=== PATIENT | male | born 1945 | race Caucasian/White ===

== ENCOUNTER 2016-09-25 12:44 | Observation (INO) | payer OTHER ==
[~2016-09-25] VITALS: Ht 180.3 cm; Wt 125.0 kg
--- NOTE | 2016-09-25 14:05 | DIAGNOSTIC IMAGING REPORT ---
PROCEDURE: CT HEAD WITHOUT CONTRAST INDICATION: TRAUMA/INJURY TECHNIQUE: Axial CT images were acquired through the head. Coronal and sagittal reformations were created. COMPARISON: None. FINDINGS: Images limited by motion artifact. No intracranial hemorrhage or extraaxial fluid collections. Ventricles are normal in size, shape and position. There is no mass, mass effect or midline shift. The christopher-white matter differentiation is normal. There is no edema. The calvarium is intact. The paranasal sinuses and mastoid air cells are normally aerated. The extracranial soft tissues and orbits are normal. Facial bones CT: There is swelling over the soft tissues of the right orbit and forehead. Bony orbits, zygomatic arches, maxilla, mandible, pterygoid plates, and temporomandibular joints are all intact. IMPRESSION: 1. No CT evidence of acute intracranial process. 2. Superficial orbital and forehead swelling All CT scans at this facility use dose modulation, iterative reconstruction, and/or weight-based dosing when appropriate to reduce radiation dose to as low as reasonably achievable.
--- NOTE | 2016-09-25 14:09 | DIAGNOSTIC IMAGING REPORT ---
PROCEDURE: CT CERVICAL SPINE W/O CONTRAST INDICATION: TRAUMA/INJURY TECHNIQUE: Noncontrast axial images with sagittal and coronal reformations. COMPARISON: Cervical spine CT 06/01/2016 FINDINGS: The craniocervical junction is intact. The cervical vertebral bodies are normal in height without evidence of fracture. Partial bony ankylosis between the vertebral bodies and facet joints at the C2-3 level. Chronic-appearing grade 1 anterolisthesis, moderate to severe posterior disc height loss, endplate degeneration, and severe facet arthropathy at C3-4. There is bilateral foraminal narrowing. Moderately severe disc height loss at the C6-7 level also causing bilateral foraminal narrowing. No pathologic subluxation. The central canal is patent. No prevertebral or paravertebral soft-tissue swelling or mass. Mild carotid atherosclerosis. Patent airway and normal lung apices. IMPRESSION: 1. No acute fracture or pathologic subluxation. 2. Moderate to severe degenerative changes at C3-4 and C6-7 causing bilateral foraminal narrowing but no acute central canal stenosis.
--- NOTE | 2016-09-25 14:13 | DIAGNOSTIC IMAGING REPORT ---
PROCEDURE: CT SINUS/FACIAL BONES W/O CONT CLINICAL INDICATION: TRAUMA/INJURY TECHNIQUE: Noncontrast axial CT images through the sinuses. Coronal and sagittal reformations were created. COMPARISON: None. FINDINGS: The frontal sinuses are normally aerated. The outflow tracts are patent. Sphenoid sinuses and their outflow tracts are patent. The maxillary sinuses are normally aerated with mucosal thickening. The outflow tracts are patent. The nasal septum is midline without significant spurring. Nasal passages are patent with normal nasal turbinate morphology. No facial bone fractures. There is edema over the right orbit and forehead. IMPRESSION: 1. No facial bone fractures. Soft tissue edema. 2. Results were called to Dr. Mccann at 12:[address] scans at this facility use dose modulation, iterative reconstruction, and/or weight-based dosing when appropriate to reduce radiation dose to as low as reasonably achievable.
--- NOTE | 2016-09-25 14:23 | DIAGNOSTIC IMAGING REPORT ---
PROCEDURE: XR KNEE 4 VIEWS - RIGHT INDICATION: TRAUMA/INJURY TECHNIQUE: Four views. COMPARISON: None. FINDINGS: No fracture dislocation. There is osteoarthritis and narrowing of the medial joint space compartment. IMPRESSION: 1. No fracture or dislocation.
--- NOTE | 2016-09-25 14:31 | DIAGNOSTIC IMAGING REPORT ---
PROCEDURE: XR TOE - LEFT INDICATION: TRAUMA/INJURY TECHNIQUE: A P foot and two views of the left first toe. COMPARISON: None. FINDINGS: There is a chip fracture off the medial aspect of the base of the distal phalanx of the first toe. IMPRESSION: 1. Chip fracture off the base of the proximal phalanx of the great toe. 2. Results discussed with the Dr. Mccann at 02:20 p.m.
--- NOTE | 2016-09-25 16:07 | DIAGNOSTIC IMAGING REPORT ---
PROCEDURE: XR CHEST 1 VIEW INDICATION: CHEST PAIN TECHNIQUE: Portable AP view 03:45 p.m. COMPARISON: Chest 05/01/16 FINDINGS: The cardiomediastinal contour and central vasculature are normal. Mild right lung base atelectasis. The lungs are otherwise clear without focal consolidation, pleural effusion. The osseous structures demonstrate deformities of right fifth, sixth, and seventh rib fractures. No pneumothorax. IMPRESSION: 1. No evidence of acute cardiopulmonary disease. 2. Old right rib fractures.
--- NOTE | 2016-09-25 21:09 | DIAGNOSTIC IMAGING REPORT ---
PROCEDURE: NM PULMONARY PERFUSION W/VENT INDICATION: Left-sided chest pain, hypoxia, history of COPD TECHNIQUE: 36.7 mCi of technetium-99m DTPA was aerosolized and inhaled. 5.8 mCi technetium-99m MAA was injected intravenously. Ventilation and perfusion images of the lungs were obtained in eight orthogonal projections. COMPARISON: None. Chest x-ray Performed the same day. FINDINGS: Ventilation images: Clumping of radiotracer in the main bronchi. Multiple areas of ventilation defects throughout both lungs. Perfusion images: Mildly heterogeneous distribution of perfusion radiotracer throughout the lungs. There are multiple matched perfusion defects in each lung, smaller than the ventilation defects. There are no perfusion defects without accompanying ventilation defect. IMPRESSION: 1. Low probability of pulmonary embolus. 2. Perfusion and ventilation defects consistent with COPD. 3. Findings called to the emergency room.
--- NOTE | 2016-09-25 21:24 | ED ORDER SUMMARY ---
..... Patient: MARY ACOSTA OrderSheet [facility] VisitID: [id number] [place] [address] 70y, M Registration Date/Time: 09/25/2016 ORDER SHEET Weight: 132.4 kg (measured) Allergies: No Known Drug Allergy GENERAL ORDERS: EKG - ER Stat (13:09/25/2016 TCbeatapmnathan R.N. per protocol) (13:15 TChapman R.N.) CT Cervical Spine wo Cont Urgent (13:09/25/2016 Florecita Miller) (Ack 13:32 Shanti) (14:25 MWinterer R.N.) CT Head wo Cont Urgent (13:09/25/2016 Florecita Miller) (Ack 13:32 Shanti) (14:25 MWinterer R.N.) CT Sinus/Facial Bones wo Cont Urgent (13:09/25/2016 Florecita Miller) (Ack 13:32 Shanti) (14:25 MWinterer R.N.) Knee 4V Right Urgent (13:09/25/2016 Florecita Miller) (Ack 13:32 Shanti) (14:25 MWinterer R.N.) Toe Left Urgent (13:09/25/2016 Florecita Miller) (Ack 13:32 Shanti) (14:25 MWinterer R.N.) Cardiac Panel Stat (13:09/25/2016 Florecita Miller) (Ack 13:32 Shanti) (14:01 MWinterer R.N.) UA-Culture if indicated Urgent (13:09/25/2016 Florecita Miller) (Ack 13:32 Shanti) (14:52 Renu R.N.) BNP Urgent (13:09/25/2016 Florecita Miller) (Ack 13:32 Shanti) (14:01 MWinterer R.N.) D-Dimer Urgent (13:09/25/2016 Florecita Miller) (Ack 13:32 Shanti) (14:01 MWinterer R.N.) Amylase Urgent (13:22 09/25/2016 Florecita Miller) (Ack 13:32 Shanti) (14:01 MWinterer R.N.) Lipase Urgent (13:22 09/25/2016 Florecita Miller) (Ack 13:32 Shanti) (14:01 MWinterer R.N.) VQ Scan (Positive D dimer. Cr 2.1) Urgent (14:27 09/25/2016 Florecita Miller) (Ack 14:41 Shanti) (21:13 [facility]) Chest 1V Urgent (15:45 09/25/2016 Florecita Miller) (15:52 MWinterer R.N.) MEDICATION ORDERS: IV FLUIDS: IV NS : initial bolus none -, then 1000 mL/hr (NOW) (13:02 09/25/2016 TChapman R.N. per protocol) (13:05 TChapman R.N.) Zofran IV 4 mg (NOW) (13:22 09/25/2016 Florecita Miller) (Ack 13:53 JBoardley R.N.) (14:24 MWinterer R.N.) Magnesium Sulfate Drip IV : initial bolus 2 gm/50mL, then 1 gm/hr (HIGH ALERT MEDICATION, NOW, over 2 hours) (15:45 09/25/2016 Florecita Miller) (Ack 15:49 TChapman R.N.) (16:01 TChapman R.N.) IV NS : initial bolus none -, then 1000 mL/hr for X1 (NOW) (15:46 09/25/2016 Florecita Miller) (Ack 15:49 TChapman R.N.) (16:01 TChapman R.N.) Morphine IV 4 mg (HIGH ALERT MEDICATION, NOW) (17:38 09/25/2016 Florecita Miller) (Ack 17:43 TChapman R.N.) (17:48 TChapman R.N.) ORDER SHEET NOTES: [Electronically signed by Willie Mccann Dr. (21:31 09/25/2016)] [Electronically signed by Shantel Murillo R.N. (23:17 09/25/2016)] [Electronically locked/signed by Shantel Murillo R.N. (23:17 09/25/2016)]
--- NOTE | 2016-09-25 21:24 | ED CLINICAL REPORT ---
Clinical Report - Physicians/Mid Levels [place] [address] [address] [place] [address] 09/25/2016 12:44 Patient: MARY ACOSTA Time Seen: 12:46; upon arrival, initial patient contact. Arrived- By ambulance. Historian- patient. HISTORY OF PRESENT ILLNESS Location of injuries- head, face, right knee and left great toe. Chief Complaint: INJURY TO HEAD, INJURY TO FACE and INJURY TO NECK. The injury occurred yesterday. Fell off a chair and landed on a tile surface (Fell off commode after losing balance). Occurred at home. The patient complains of moderate pain. The patient sustained a moderate blow to the head, complains of moderate neck pain and was dazed. No loss of consciousness or seizure. REVIEW OF SYSTEMS No nausea, difficulty breathing, decreased vision, double vision or epistaxis. No calf pain, cough, difficulty breathing, palpitations or alteration in mental status. No dizziness or numbness. The patient has had chest pain and pain, pedal edema, abdominal pain and joint pain. He has had a headache and sustained a head injury. All systems otherwise negative, except as recorded above. PAST HISTORY PAST MEDICAL HX: Mild type II diabetes mellitus. Hypertension. Heart disease. Medications: Carvedilol Phosphate ER Oral. Lisinopril Oral. Allergies: No Known Drug Allergy. SOCIAL HISTORY Current every day heavy tobacco smoker. No alcohol use or drug use. ADDITIONAL NOTES The nursing notes have been reviewed with agreement regarding the chief complaint, PMH and patient medications and allergies. PHYSICAL EXAM Appearance: Patient on a backboard. C-collar in place. Alert. No acute distress. Eyes: Pupils equal, round and reactive to light. EOM intact. Right periorbital area: moderate erythema, tenderness and swelling and large ecchymosis of the lateral aspect and supraorbital area of the periorbital area. No deformity. ENT: No dental injury. Dry mucous membranes present. Neck: Painless ROM. Neck non-tender. CVS: Heart sounds normal. Rate normal. Rhythm normal. Respiratory: No respiratory distress. Breath sounds normal. Chest nontender. Abdomen: Soft and nontender. No organomegaly. Back: Mild soft-tissue tenderness in the right upper and left upper thoracic area. No vertebral point tenderness. Skin: Skin intact. Skin warm and dry. Extremities: Right knee: mild erythema, tenderness and swelling and medium sized ecchymosis. Left foot: mild tenderness, moderate swelling and medium sized ecchymosis of the first toe. Neuro: Oriented X 3. Mood/affect normal. Speech normal. No motor deficit. No sensory deficit. LABS, X-RAYS, AND EKG EKG: EKG time: (1257). Normal sinus rhythm. Rate: 91. First-degree atrioventricular block. Normal QRS complex. Normal axis. Prolonged QTc (479). Interpretation time: 1257. Chest X-ray: (1. No evidence of acute cardiopulmonary disease. 2. Old right rib fractures.). Views: AP. Technique: good. The X-rays were independently viewed by me, interpreted by the radiologist and discussed with the radiologist. Prior films were not available for comparison. Rt Knee X-ray: No fracture. Normal alignment. No bony lesion. Soft tissues normal. Views: AP, lateral and oblique. Technique: good. The X-rays were independently viewed by me and interpreted contemporaneously by me. Prior films were not available for comparison. Lt Toes X-ray: Left toe(s) fracture. Fracture involving the proximal phalanx of the first toe. No angulated or displaced fracture of the first toe. Views: AP, lateral and oblique. Technique: good. The X-rays were independently viewed by me and interpreted contemporaneously by me. Prior films were not available for comparison. CT Face: 1. No facial bone fractures. Soft tissue edema. Facial CT performed without contrast. Prior studies were not available for comparison. The study was independently viewed by me, interpreted by the radiologist and discussed with the radiologist. CT C-Spine: (1. No acute fracture or pathologic subluxation. 2. Moderate to severe degenerative changes at C3-4 and C6-7 causing bilateral foraminal narrowing but no acute central canal stenosis.). Prior studies were not available for comparison. The study was interpreted by the radiologist and discussed with the radiologist. CT Head: (1. No CT evidence of acute intracranial process. 2. Superficial orbital and forehead swelling). Head CT performed without contrast. Prior studies were not available for comparison. The study was interpreted by the radiologist and discussed with the radiologist. V/Q Scan: Low probability for pulmonary embolism. Evidence of COPD. (No evidence of PE). The study was interpreted by the radiologist and discussed with the radiologist. Study type: V/Q scan. Prior studies were not available for comparison. Interpretation time: 21:05. Laboratory Tests: UA-Culture if indicated: (ELENA: 09/25/2016 14:45) ( [facility] 09/25/2016 15:09) Final results Test Result Flag Units (Reference) URINE COLOR YELLOW URINE APPEARANCE CLEAR URINE GLUCOSE NEGATIVE (NEGATIVE) URINE BILIRUBIN NEGATIVE (NEGATIVE) URINE KETONE NEGATIVE (NEGATIVE) URINE SPECIFIC GRAVITY 1.010 (1.010-1.030) URINE PH 6.0 (5.0-8.0) URINE PROTEIN NEGATIVE (NEGATIVE) URINE UROBILINOGEN 0.2 EU/dL (0.2-1.0) URINE NITRITE NEGATIVE (NEGATIVE) URINE BLOOD NEGATIVE (NEGATIVE) URINE LEUK ESTERASE NEGATIVE (NEGATIVE) URINE RBC NONE SEEN rbc/hpf (0-1) URINE WBC RARE wbc/hpf (0-1) URINE EPITHELIAL CELLS 0-1 EPI/hpf (0-5) URINE BACTERIA NONE SEEN (NONE SEEN) URINE COMMENT CULT NOT INDICATED URINE CULTURES ARE SET-UP BASED ON THE FOLLOWING CRITERIA:POSITIVE NITRITEPOSITIVE LEUKOCYTE ESTERASEGREATER THAN 10 WHITE BLOOD CELLSMODERATE (2+) OR GREATER BACTERIA CBC w Diff: (ELENA: 09/25/2016 11:58) ( [facility] 09/25/2016 13:36) Final results Test Result Flag Units (Reference) WHITE BLOOD COUNT 7.8 K/uL (4.5-11.5) RED BLOOD COUNT 3.95 L M/uL (4.50-5.90) HEMOGLOBIN 12.3 L gm/dL (13.5-17.5) HEMATOCRIT 36.3 L % (41.0-53.0) MEAN CELL VOLUME 92 fL (80-100) MEAN CORPUSCULAR HGB 31 pg (26-34) MEAN CORPUSCULAR HGB CONC 34 g/dL (31-37) RED CELL DISTRIBUTION WIDTH 15.0 H % (11.6-14.8) PLATELET COUNT 232 K/uL (150-400) NEUTROPHIL % 78.8 H % (50-75) LYMPH % 12.1 L % (25-40) MONO % 8.4 % (3-14) EOSINOPHIL % 0.4 % (0-4) BASOPHIL % 0.3 % (0-2) [id number]: (ELENA: 09/25/2016 11:58) ( [facility] 09/25/2016 13:44) Final results Test Result Flag Units (Reference) D-DIMER QUANTITATIVE 1.55 H ug/mLFEU (0.27-0.52) The primary value of this quantitative assay relates toits negative predictive value (i.e. exclusion) of pulmonaryembolism/deep vein thrombosis/DIC.Elevated levels of d-dimer may also occur with:, age, cancer, inflammation, liver disease,post-op, infection, hematoma, coronary disease, peripheralarteriopathy, bleeding disorders and thrombolytic treatment.Results should be correlated with other clinical andradiological data.Testing Methodology: Latex Immunoassay BNP: (ELENA: 09/25/2016 11:58) ( [facility] 09/25/2016 14:01) Final results Test Result Flag Units (Reference) B-TYPE NATRIURETIC PEPTIDE 59.3 pg/ml (5-100) CHEM 13 PANEL: (ELENA: 09/25/2016 11:58) ( [facility] 09/25/2016 15:20) Final results Test Result Flag Units (Reference) GLUCOSE 182 H mg/dL (70-110) BUN 26 H mg/dL (7-18) CREATININE 2.1 H mg/dL (0.6-1.3) Estimated GFR 33.45 mL/min Estimated GFR- 40.54 mL/min Note: Persistent reduction over 3 months in eGFR<60 mL/min/1.73 m2 defines CKD. Patients with eGFR values>=60 mL/min/1.73 m2 may also have CKD if evidence ofpersistent proteinuria. Additional information may be foundat www.kidney.org. SODIUM 126 L mmol/L (136-145) POTASSIUM 3.3 L mmol/L (3.5-5.1) CHLORIDE 87 L mmol/L (98-107) CARBON DIOXIDE 26 mmol/L (21-32) CALCIUM 8.2 L mg/dL (8.5-10.1) TOTAL PROTEIN 6.9 g/dL (6.4-8.2) ALBUMIN 3.1 L g/dL (3.3-5.0) BILIRUBIN, TOTAL 0.5 mg/dL (0.0-1.0) ALKALINE PHOSPHATASE 114 U/L (46-116) AST (SGOT) 27 U/L (15-37) ALT (SGPT) 20 U/L (12-78) MAGNESIUM 1.1 L mg/dL (1.8-2.4) LIPASE 109 U/L (73-393) AMYLASE 40 U/L (25-115) CPK 273 H U/L (24-260) TROPONIN I <0.05 ng/mL (0.00-1.5) TROPONIN REFERENCE RANGE:<0.1 NEGATIVE0.1-1.5 INDETERMINANT>1.5 POSITIVE CK-MB 3.2 ng/mL (0.5-3.2) %CKMB 1.2 % (0.0-4.0) . PROGRESS AND PROCEDURES Discussed case with hospitalist, (call returned 17:20 Dr. Freeman. Will take pt, would like VQ scan results before taking upstairs.). Discussed case with hospitalist, (call returned 21:28 Dr. Nobles. Will accept pt and see in ED). Agreed upon treatment plan and decision to place in observation. Health care provider will see patient in ED. Disposition: Observation in Acute Care. Condition: good. CLINICAL IMPRESSION Profound idiopathic hypotension. Closed nondisplaced proximal phalanx fracture of the left 1st toe. Multiple contusions with soft tissue hematoma to the right periorbital area, right knee and left great toe.No left toenail injury. Hypoxia. (Electronically signed by Willie Mccann Dr. 09/25/2016 21:31)
--- NOTE | 2016-09-25 21:24 | ED ORDER SUMMARY ---
..... Patient: MARY ACOSTA OrderSheet [facility] VisitID: [id number] [place] [address] 70y, M Registration Date/Time: 09/25/2016 ORDER SHEET Weight: 132.4 kg (measured) Allergies: No Known Drug Allergy GENERAL ORDERS: EKG - ER Stat (13:09/25/2016 TCbeatapmnathan R.N. per protocol) (13:15 TChapman R.N.) CT Cervical Spine wo Cont Urgent (13:09/25/2016 Florecita Miller) (Ack 13:32 Shanti) (14:25 MWinterer R.N.) CT Head wo Cont Urgent (13:09/25/2016 Florecita Miller) (Ack 13:32 Shanti) (14:25 MWinterer R.N.) CT Sinus/Facial Bones wo Cont Urgent (13:09/25/2016 Florecita Miller) (Ack 13:32 Shanti) (14:25 MWinterer R.N.) Knee 4V Right Urgent (13:09/25/2016 Florecita Miller) (Ack 13:32 Shanti) (14:25 MWinterer R.N.) Toe Left Urgent (13:09/25/2016 Florecita Miller) (Ack 13:32 Shanti) (14:25 MWinterer R.N.) Cardiac Panel Stat (13:09/25/2016 Florecita Miller) (Ack 13:32 Shanti) (14:01 MWinterer R.N.) UA-Culture if indicated Urgent (13:09/25/2016 Florecita Miller) (Ack 13:32 Shanti) (14:52 Renu R.N.) BNP Urgent (13:09/25/2016 Florecita Miller) (Ack 13:32 Shanti) (14:01 MWinterer R.N.) D-Dimer Urgent (13:09/25/2016 Florecita Miller) (Ack 13:32 Shanti) (14:01 MWinterer R.N.) Amylase Urgent (13:22 09/25/2016 Florecita Miller) (Ack 13:32 Shanti) (14:01 MWinterer R.N.) Lipase Urgent (13:22 09/25/2016 Florecita Miller) (Ack 13:32 Shanti) (14:01 MWinterer R.N.) VQ Scan (Positive D dimer. Cr 2.1) Urgent (14:27 09/25/2016 Florecita Miller) (Ack 14:41 Shanti) (21:13 [facility]) Chest 1V Urgent (15:45 09/25/2016 Florecita Miller) (15:52 MWinterer R.N.) MEDICATION ORDERS: IV FLUIDS: IV NS : initial bolus none -, then 1000 mL/hr (NOW) (13:02 09/25/2016 TChapman R.N. per protocol) (13:05 TChapman R.N.) Zofran IV 4 mg (NOW) (13:22 09/25/2016 Florecita Miller) (Ack 13:53 JBoardley R.N.) (14:24 MWinterer R.N.) Magnesium Sulfate Drip IV : initial bolus 2 gm/50mL, then 1 gm/hr (HIGH ALERT MEDICATION, NOW, over 2 hours) (15:45 09/25/2016 Florecita Miller) (Ack 15:49 TChapman R.N.) (16:01 TChapman R.N.) IV NS : initial bolus none -, then 1000 mL/hr for X1 (NOW) (15:46 09/25/2016 Florecita Miller) (Ack 15:49 TChapman R.N.) (16:01 TChapman R.N.) Morphine IV 4 mg (HIGH ALERT MEDICATION, NOW) (17:38 09/25/2016 Florecita Miller) (Ack 17:43 TChapman R.N.) (17:48 TChapman R.N.) ORDER SHEET NOTES: [Electronically signed by Willie Mccann Dr. (21:31 09/25/2016)] [Electronically signed by Shantel Murillo R.N. (23:17 09/25/2016)] [Electronically locked/signed by Shantel Murillo R.N. (23:17 09/25/2016)]
--- NOTE | 2016-09-25 21:24 | ED NURSING NOTES ---
Clinical Report - Nurses [facility] [address] [place] [address] 09/25/2016 12:44 Patient: MARY ACOSTA TRIAGE Triage time 12:47. Acuity: LEVEL 3. --12:56 Jaimee Bal R.N. 12:46 09/25/16. BP: 85/47. HR: 91. RR: 20. O2 saturation: 91% on room air. Temp: 98.1 F. Pain level now: 02/22. --12:56 Jaimee Bal R.N. Chief Complaint: INJURY TO HEAD and FACE. late entry - 12:46 09/25/16. --19:09 Shantel Murillo R.N. Weight: 132.4 kg measured. Height/Length: 72 inches Per Patient. BMI: 39.6. --13:05 Jaimee Bal R.N. Medications Carvedilol Phosphate ER Oral. Lisinopril Oral. --12:51 Jaimee Bal R.N. Allergies No Known Drug Allergy. --12:51 Jaimee Bal R.N. History Arrived by EMS, and from home. Historian: patient. ( yesterday had syncope episode. today called because he is in pain and c/o chest discomfort to medic dispatched. C/o pain everywhere). The patient had loss of consciousness of uncertain duration. He has had a headache and neck pain. ( yesterday. not today). 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 PAST MEDICAL HX: Mild type II diabetes mellitus. Hypertension. Heart disease. SOCIAL HX: Heavy tobacco smoker (cigarette)- 1 pack per day. Alcohol use. No drug use. ABUSE ASSESSMENT: No report of abuse. NUTRITIONAL RISK ASSESSMENT: The nutritional risk assessment revealed no deficiencies. FALL RISK ASSESSMENT: Fall risk assessment completed. Risk factors identified include severe pain, postural hypotension and patient history of fall and impairment of mobility and hearing. Fall interventions initiated. Side rails up x1. Brakes on Bed in low position. Patient visible from nurses' station. Call light in reach of patient. Instructed not to get up without assistance. --12:56 Jaimee Bal R.N. Interventions ID and allergy band on patient. To room. --12:56 Jaimee Bal R.N. 12:40 09/25/2016 Site #1 started prior to arrival by EMS via IV in the left forearm with an 20g angiocath; one attempt. Saline lock flushed. --12:50 Jaimee Bal R.N. PHYSICAL ASSESSMENT GENERAL / NEURO / PSYCH: Pupillary exam: Left pupil: 2mm, round and reactive to light directly. He has had weakness. HEENT: Head: signs of head trauma present. Photophobia present. RESPIRATORY: Wheezes right lung; left lung. CVS: Capillary refill less than 2 seconds. GI / : Abdominal tenderness. EXTREMITIES: Limited ROM present. Lower extremity edema. Gait not tested due to pain. Sensation intact. No upper extremity edema. SKIN: Skin is cool. --13:01 Jaimee Bal R.N. NURSING PROGRESS NOTES Soft c-collar applied. Two patient identifiers checked. Call light placed in reach. Side rails up x 2. Bed placed in lowest position. Brakes of chair on. Patient ready for evaluation- chart flagged and ED physician notified. --13:02 Jaimee Bal R.N. 12:58 09/25/2016 Site #2 started via IV in the right wrist with an 20g angiocath, with aseptic technique and good blood return; one attempt. Blood drawn: rainbow set. Labeled in the presence of the patient and sent to the lab. Saline lock flushed. --13:03 Jaimee Bal R.N. 13:05 09/25/2016 Started bag #1 1000 mL IV Fluids IV NS (Saline); at 1000 mL/hr over 30 minute(s) via site #1 via dial-a-flow. Allergies verified and confirmed 5 rights. IV patency established. --13:05 Jaimee Bal R.N. EKG time: (1257 PM). EKG was performed by a tech and shown to the ED physician. --13:17 Jaimee Bal R.N. Patient transported to radiology by stretcher with tech. (13:34). --13:34 Jaimee Bal R.N. 14:05 09/25/2016 IV Fluids IV NS Discontinued: bag #1 infused. Total amount infused: 1000 mL. IV patency established. IV site checked: no pain, redness, or swelling. IV flushed thoroughly. --14:24 Gardenia De Leon R.N. 14:21 09/25/16. Patient returned from radiology by stretcher with tech. --14:21 Gardenia De Leon R.N. 14:21 09/25/16. BP: 91/33. HR: 78. RR: 14. O2 saturation: 100% on nasal cannula at 2 liters/minute. --14:21 Gardenia De Leon R.N. 14:24 09/25/2016 Zofran (Ondansetron HCl) IVP 4 mg given over 1 minute(s) via site #1. Allergies verified and confirmed 5 rights. IV patency established. IV site checked: no pain, redness, or swelling. IV flushed thoroughly pre- and post-medication administration. IVP given by RN. --14:24 Gardenia De Leon R.N. 14:25 09/25/2016 Started bag #2 1000 mL IV Fluids IV NS (Saline); at 1000 mL/hr over 1 hour(s) via site #1 via IV pump. Allergies verified and confirmed 5 rights. IV patency established. IV site checked: no pain, redness, or swelling. IV flushed thoroughly pre- and post-medication administration. --14:25 Gardenia De Leon R.N. 16 fr in/out catheterization. Reason for indwelling catheter: trauma and patient's decreased level of consciousness. During procedure hand hygiene observed and sterile equipment and aseptic technique used. He tolerated procedure well. Patient ID band checked for patient name and birthdate: patient confirmed. Catheterized urine collected with return of yellow-colored clear urine; sample sent to lab for culture. --14:48 Jaimee Bal R.N. 15:03 09/25/16. BP: 90/56. HR: 84. RR: 12. O2 saturation: 96% on nasal cannula at 2 liters/minute. --15:04 Gardenia De Leon R.N. 15:31 09/25/2016 IV Fluids IV NS Discontinued: bag #2 infused. Total amount infused: 1000 mL. IV patency established. IV site checked: no pain, redness, or swelling. IV flushed thoroughly. --15:41 Gardenia De Leon R.N. 16:00 09/25/2016 Started 2 gm of Magnesium Sulfate (Magnesium Sulfate in D5W) Drip IV in bag #1 50 mL; at 2 gm/hr over 2 hour(s) via site #1 --16:01 Jaimee Bal R.N. 16:01 09/25/2016 Started IV Fluids IV NS (Saline); at 1000 mL/hr over 1 hour(s) via site #2 via dial-a-flow. Allergies verified and confirmed 5 rights. IV patency established site checked: no pain, redness, or swelling flushed thoroughly pre- and post-medication administration. --16:01 Jaimee Bal R.N. 15:30 09/25/16. BP: 101/52. HR: 84. RR: 16. O2 saturation: 95% on nasal cannula. O2 started at 2 liters/minute. --16:59 Jaimee Bal R.N. 17:00 09/25/16. BP: 95/55. HR: 88. RR: 16. O2 saturation: 95% on room air. --17:01 Gardenia De Leon R.N. 17:26 09/25/2016 IV Fluids IV NS Discontinued: bag #3 completed. Total amount infused: 1000 mL. IV site checked: no pain, redness, or swelling IV flushed thoroughly. --17:36 Jaimee Bal R.N. 17:48 09/25/2016 Morphine IVP 4 mg given. via site #2. Allergies verified, confirmed 5 rights and sedative warning given to the patient. IV patency established. IV site checked: no pain, redness, or swelling. IV flushed thoroughly pre- and post-medication administration. --17:48 Jaimee Bal R.N. 17:49 09/25/16. BP: 90/53. HR: 70. RR: 20. O2 saturation: 92%. Pain level now: 01/22. --17:50 Jaimee Bal R.N. 17:51 09/25/16. ( patient feels like he is SOB, audible wheezes heard . Patient O2 sats in low 90's). --17:51 Jaimee Bal R.N. 18:40 09/25/16. BP: 105/48. HR: 87. RR: 18. O2 saturation: 94% on room air. --18:40 Gardenia De Leon R.N. late entry - 18:50. 8 fr hernández catheter placed. Reason for indwelling catheter: requires prolonged immobilization. During procedure hand hygiene observed and sterile equipment and aseptic technique used. Return of 400 mL yellow-colored clear urine; attached to bedside drainage bag positioned below the bladder and secured with tape. He tolerated procedure well. --19:07 Evelyn Olea R.N. 18:00 09/25/2016 Magnesium Sulfate Drip IV Discontinued: completed. Total amount infused: 50 mL. IV patency established. IV site checked: no pain, redness, or swelling. IV flushed thoroughly. --19:07 Shantel Murillo R.N. 18:13 09/25/16. ( patient lying on right side with pillow to back. previously tried pillow under knees. Patient very uncomfortable.). --18:13 Jaimee Bal R.N. 19:13 09/25/16. Patient transported. (to [facility] fro vq scan). --19:13 Shantel Murillo R.N. 20:40 09/25/16. Patient returned. (from [facility]). --20:49 Shantel Murillo R.N. 20:49 09/25/16. Cardiac rhythm: normal sinus rhythm. --20:49 Shantel Murillo R.N. 20:49 09/25/16. BP: 102/65. HR: 87. RR: 18. O2 saturation: 94%. Pain level now 5/10. --20:49 Shantel Murillo R.N. 20:49 09/25/16. GENERAL / NEURO / PSYCH: Alert. Oriented X 4. RESPIRATORY: No respiratory distress. Breath sounds normal. SKIN: Skin is warm and dry. --20:49 Shantel Murillo R.N. Cardiac rhythm: normal sinus rhythm. --22:43 Shantel Murillo R.N. 22:43 09/25/16. BP: 105/55. HR: 78. RR: 20. O2 saturation: 95%. --22:43 Shantel Murillo R.NAnna 22:44 09/25/16. ( O2 is on at 2 liters.). --22:44 Shantel Murillo R.N. Intake & Output 22:57 09/25/16. IV fluids: 3000. Urine: 900. --22:57 Shantel Murillo R.N. DISPOSITION / DISCHARGE 22:52 09/25/2016 Site #[address] upon admission; patent. --22:52 Shantel Murillo R.N. 22:52 09/25/2016 Site #[address] upon admission; patent. --22:52 Shantel Murillo R.NAnna 22:52 09/25/16. Cardiac rhythm: normal sinus rhythm. The goals identified in the patient's plan of care were met. Fall risk assessment completed. Risk factors identified include postural hypotension and patient age greater than 65 years and history of fall. Report was given to a nurse via a phone call. Report included patient's care, treatment, medications, reviewed medication reconcilliation, and condition (including any recent changes or anticipated changes). All questions were answered. (yomi Fernandez RN). --22:52 Shantel Murillo R.N. 23:17 09/25/16. Departure time: 23:Sep 25 2016. Condition at departure: improved and stable. Disposition: observation in Acute Care. Transported via stretcher by nurse. --23:17 Shantel Murillo R.N. 22:43 09/25/16. BP: 105/55. HR: 78. RR: 20. O2 saturation: 95%. 22:11 09/25/16. BP: 99/54. HR: 78. RR: 20. O2 saturation: 97%. Pain level now: 5/10. 20:49 09/25/16. BP: 102/65. HR: 87. RR: 18. O2 saturation: 94%. Pain level now 11/22. 18:40 09/25/16. BP: 105/48. HR: 87. RR: 18. O2 saturation: 94% on room air. 17:49 09/25/16. BP: 90/53. HR: 70. RR: 20. O2 saturation: 92%. Pain level now: 01/22. 17:00 09/25/16. BP: 95/55. HR: 88. RR: 16. O2 saturation: 95% on room air. 15:30 09/25/16. BP: 101/52. HR: 84. RR: 16. O2 saturation: 95% on nasal cannula. O2 started at 2 liters/minute. 15:03 09/25/16. BP: 90/56. HR: 84. RR: 12. O2 saturation: 96% on nasal cannula at 2 liters/minute. 14:21 09/25/16. BP: 91/33. HR: 78. RR: 14. O2 saturation: 100% on nasal cannula at 2 liters/minute. 12:46 09/25/16. BP: 85/47. HR: 91. RR: 20. O2 saturation: 91% on room air. Temp: 98.1 F. Pain level now: 02/22. --23:17 Shantel Murillo R.N. Locked/Released at 09/25/2016 23:17 by Shantel Murillo R.N.
--- NOTE | 2016-09-25 23:18 | ED DISCHARGE INSTRUCTIONS ---
Patient: MARY ACOSTA General Instructions [facility] VisitID: [id number] [address] [place] [address] 70y, M Registration Date/Time: 09/25/2016 Profound idiopathic hypotension. Closed nondisplaced proximal phalanx fracture of the left 1st toe. Multiple contusions with soft tissue hematoma to the right periorbital area, right knee and left great toe.No left toenail injury. Hypoxia. (Electronically signed by Willie Mccann Dr. 09/25/2016 21:31)
--- NOTE | 2016-09-25 23:18 | ED MAR SUMMARY ---
..... Medication Administration Record [facility] [address] [place] [address] Patient: MARY ACOSTA Visit ID: [id number] 70y, M Weight: 132.4 kg Height/Length: 72 in BMI: 39.6 ALLERGIES: No Known Drug Allergy Start 13:05 09/25/2016 Jaimee Bal R.N., Stop 14:05 09/25/2016 Gardenia De Leon R.N. Medication Administered: IV NS (SALINE), Dose: IV Fluids over 30 minute(s), Rate: 1000 mL/hr, Dispensed: 1000 mL bag, Site: #1 left forearm. Medication Ordered: IV NS : initial bolus none -, then 1000 mL/hr (NOW). Given 14:24 09/25/2016 Gardenia De Leon R.N. Medication Administered: ZOFRAN [IVP] (ONDANSETRON HCL), Dose: 4 mg IVP over 1 minute(s), Site: #1 left forearm. Medication Ordered: Zofran IV 4 mg (NOW). Start 14:25 09/25/2016 Gardenia De Leon R.N., Stop 15:31 09/25/2016 Gardenia De Leon R.N. Medication Administered: IV NS (SALINE), Dose: IV Fluids over 1 hour(s), Rate: 1000 mL/hr, Dispensed: 1000 mL bag, Site: #1 left forearm. Medication Ordered: IV NS : initial bolus none -, then 1000 mL/hr (NOW). Start 16:00 09/25/2016 Jaimee Bal R.N., Stop 18:00 09/25/2016 Shantel Murillo R.N. Medication Administered: MAGNESIUM SULFATE [IV DRIP] (MAGNESIUM SULFATE IN D5W), Dose: 2 gm Drip IV over 2 hour(s), Rate: 2 gm/hr, Dispensed: 50 mL bag, Site: #1 left forearm. Medication Ordered: Magnesium Sulfate Drip IV : initial bolus 2 gm/50mL, then 1 gm/hr (HIGH ALERT MEDICATION, NOW, over 2 hours). Start 16:01 09/25/2016 Jaimee Bal R.N., Stop 17:26 09/25/2016 Jaimee Bal R.N. Medication Administered: IV NS (SALINE), Dose: IV Fluids over 1 hour(s), Rate: 1000 mL/hr, Site: #2 right wrist. Medication Ordered: IV NS : initial bolus none -, then 1000 mL/hr for X1 (NOW). Given 17:48 09/25/2016 Jaimee Bal R.N. Medication Administered: MORPHINE [IVP], Dose: 4 mg IVP, Site: #2 right wrist. Medication Ordered: Morphine IV 4 mg (HIGH ALERT MEDICATION, NOW).
--- NOTE | 2016-09-25 23:18 | ED MED RECONCILIATION SUMMARY ---
Patient: MARY ACOSTA Medication Reconciliation Report [facility] VisitID: [id number] [address] [place] [address] 70y, M Registration Date/Time: 09/25/2016 Weight: 132.4 kg Height/Length: 72 in. BMI: 39.6 ALLERGIES: No Known Drug Allergy The patient's Home Medications are listed below: THE FOLLOWING MEDICATIONS NEED TO BE RECONCILED: Carvedilol Phosphate ER Oral Lisinopril Oral The source(s) of the original Home Medication information: Not obtained. The following Medications were given to the patient in the Emergency Department: IV NS IV Fluids bolus 0, then 1000 mL/hr, administered: 09/25/2016 1:05:00 PM Zofran [IVP] IVP 4 mg, administered: 09/25/2016 2:24:00 PM IV NS IV Fluids bolus 0, then 1000 mL/hr, administered: 09/25/2016 2:25:00 PM Magnesium Sulfate [IV Drip] Drip IV bolus 0, then 2 gm 2 gm/hr, administered: 09/25/2016 4:00:00 PM IV NS IV Fluids bolus 0, then 1000 mL/hr, administered: 09/25/2016 4:01:00 PM Morphine [IVP] IVP 4 mg, administered: 09/25/2016 5:48:00 PM The following Medications were prescribed to the patient: None.
--- NOTE | 2016-09-25 23:18 | ED DISCHARGE INSTRUCTIONS ---
Patient: MARY ACOSTA General Instructions [facility] VisitID: [id number] [address] [place] [address] 70y, M Registration Date/Time: 09/25/2016 Profound idiopathic hypotension. Closed nondisplaced proximal phalanx fracture of the left 1st toe. Multiple contusions with soft tissue hematoma to the right periorbital area, right knee and left great toe.No left toenail injury. Hypoxia. (Electronically signed by Willie Mccann Dr. 09/25/2016 21:31)
--- NOTE | 2016-09-25 23:18 | ED MED RECONCILIATION SUMMARY ---
Patient: MARY ACOSTA Medication Reconciliation Report [facility] VisitID: [id number] [address] [place] [address] 70y, M Registration Date/Time: 09/25/2016 Weight: 132.4 kg Height/Length: 72 in. BMI: 39.6 ALLERGIES: No Known Drug Allergy The patient's Home Medications are listed below: THE FOLLOWING MEDICATIONS NEED TO BE RECONCILED: Carvedilol Phosphate ER Oral Lisinopril Oral The source(s) of the original Home Medication information: Not obtained. The following Medications were given to the patient in the Emergency Department: IV NS IV Fluids bolus 0, then 1000 mL/hr, administered: 09/25/2016 1:05:00 PM Zofran [IVP] IVP 4 mg, administered: 09/25/2016 2:24:00 PM IV NS IV Fluids bolus 0, then 1000 mL/hr, administered: 09/25/2016 2:25:00 PM Magnesium Sulfate [IV Drip] Drip IV bolus 0, then 2 gm 2 gm/hr, administered: 09/25/2016 4:00:00 PM IV NS IV Fluids bolus 0, then 1000 mL/hr, administered: 09/25/2016 4:01:00 PM Morphine [IVP] IVP 4 mg, administered: 09/25/2016 5:48:00 PM The following Medications were prescribed to the patient: None.
--- NOTE | 2016-09-25 23:18 | ED MAR SUMMARY ---
..... Medication Administration Record [facility] [address] [place] [address] Patient: MARY ACOSTA Visit ID: [id number] 70y, M Weight: 132.4 kg Height/Length: 72 in BMI: 39.6 ALLERGIES: No Known Drug Allergy Start 13:05 09/25/2016 Jaimee Bal R.N., Stop 14:05 09/25/2016 Gardenia De Leon R.N. Medication Administered: IV NS (SALINE), Dose: IV Fluids over 30 minute(s), Rate: 1000 mL/hr, Dispensed: 1000 mL bag, Site: #1 left forearm. Medication Ordered: IV NS : initial bolus none -, then 1000 mL/hr (NOW). Given 14:24 09/25/2016 Gardenia De Leon R.N. Medication Administered: ZOFRAN [IVP] (ONDANSETRON HCL), Dose: 4 mg IVP over 1 minute(s), Site: #1 left forearm. Medication Ordered: Zofran IV 4 mg (NOW). Start 14:25 09/25/2016 Gardenia De Leon R.N., Stop 15:31 09/25/2016 Gardenia De Leon R.N. Medication Administered: IV NS (SALINE), Dose: IV Fluids over 1 hour(s), Rate: 1000 mL/hr, Dispensed: 1000 mL bag, Site: #1 left forearm. Medication Ordered: IV NS : initial bolus none -, then 1000 mL/hr (NOW). Start 16:00 09/25/2016 Jaimee Bal R.N., Stop 18:00 09/25/2016 Shantel Murillo R.N. Medication Administered: MAGNESIUM SULFATE [IV DRIP] (MAGNESIUM SULFATE IN D5W), Dose: 2 gm Drip IV over 2 hour(s), Rate: 2 gm/hr, Dispensed: 50 mL bag, Site: #1 left forearm. Medication Ordered: Magnesium Sulfate Drip IV : initial bolus 2 gm/50mL, then 1 gm/hr (HIGH ALERT MEDICATION, NOW, over 2 hours). Start 16:01 09/25/2016 Jaimee Bal R.N., Stop 17:26 09/25/2016 Jaimee Bal R.N. Medication Administered: IV NS (SALINE), Dose: IV Fluids over 1 hour(s), Rate: 1000 mL/hr, Site: #2 right wrist. Medication Ordered: IV NS : initial bolus none -, then 1000 mL/hr for X1 (NOW). Given 17:48 09/25/2016 Jaimee Bal R.N. Medication Administered: MORPHINE [IVP], Dose: 4 mg IVP, Site: #2 right wrist. Medication Ordered: Morphine IV 4 mg (HIGH ALERT MEDICATION, NOW).
[2016-09-25 23:31] VITALS: BP 122/57
[2016-09-26] VITALS (10 sets, daily range): BP systolic 90–128; BP diastolic 43–92
--- NOTE | 2016-09-26 00:52 | HISTORY AND PHYSICAL ---
ADMITTED: 09/25/2016 CHIEF COMPLAINT: 1. Fall at home 2. Bruising around right eye 3. Shortness of breath HISTORY OF PRESENT ILLNESS: The patient is a 70-year-old white male who became weak and lost his balance as he was getting up from a commode yesterday evening, 09/24/2016. He fell forward and struck his right facial area on the door frame, he thinks, and then fell to the floor on the anterior chest and knee area on the right side and stubbed the toe of his left foot into the floor. He was able to get up. He decided he was okay and waited until this morning to see how he was feeling. He felt quite short of breath and felt he should have this checked out. He called 9-1-1 and was transferred here to [facility]. He did show somewhat low oxygen saturations in the emergency department and had an elevated D-dimer of 1.55. He had a lung V/Q scan in place of pulmonary angiogram due to decreased kidney function. This showed no evidence of pulmonary embolus. Due to his weakness and somewhat unsteadiness he is admitted to observation. MEDICAL/SURGICAL HISTORY: Past medical history: Remarkable for hypertension, COPD, adult-onset diabetes, prostate cancer, osteoarthritis, obesity, and carotid artery disease. Past surgical history: Remarkable for a right hip joint replacement done a number of years ago. He also has had a right carotid endarterectomy. PRIMARY CARE PROVIDER: Ms. Zhu at the [facility] in [place]. MEDICATIONS: The patient is unsure of doses. Include: 1. Lisinopril. 2. Carvedilol. 3. Oral medicine for diabetes, which he takes twice daily. 4. He is on 2 medicines to help with urine flow. He is not sure what these are. 5. He thinks he may be on a medicine for cholesterol as well. 6. Aspirin 81 mg daily. ALLERGIES: 1. THE PATIENT HAS NO KNOWN ALLERGIES. SOCIAL HISTORY: Indicates the patient is about 1 year ago with his passing away of a fulminant infection that could not be controlled. He lives alone currently. He has no children. 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 He smokes 1 pack per day. He does occasionally drink some alcohol. He does not use other drugs. FAMILY HISTORY: Remarkable for father who around age 86 of twisted bowel problems. His mother around age 86 of heart problems and old age. He has 1 older sister age 86, who is living in [place]. He has 2 brothers, both of whom have , one at age 72 of causes the patient is not sure of and one around 58 of alcohol abuse. CODE STATUS: He and I discussed code status and he prefers NO CODE STATUS, but would like medications given. He would not like to be intubated or placed on life support machines. REVIEW OF SYSTEMS: HEENT: Remarkable for swelling around the right eye. He has had no problems with his vision or other difficulties. Respiratory: Remarkable for some chest congestion and wheezing. He does use inhalers. He has a long smoking history. Cardiovascular: Okay with no major problems other than hypertension. He does have some mild lower extremity edema. Gastrointestinal: Okay. He thinks he may have had a colonoscopy 7 or 8 years ago, which was okay. Genitourinary: Remarkable for prostate cancer, treated with radiation implants. He does occasionally have some difficulty passing his urine. He has had no blood in his urine. Musculoskeletal: Remarkable for arthritis pain in multiple joints. He has decreased mobility and he uses a walker. He is quite obese and this contributes to his difficulties. Skin: Okay. Neurologic: Okay with no focal numbness or weakness. PHYSICAL EXAMINATION: GENERAL: Reveals the patient to be a significantly obese white male who is in no acute distress. VITAL SIGNS: Temperature is 98.1. Blood pressure is in the 90-100 range systolic and 50-60 range diastolic. Pulse is in the 80s. Oxygen saturation has been from 91-97 on room air. HEENT: Remarkable for quite pronounced ecchymosis around the right oral area. There is some conjunctival injection on the right. Extraocular movements are normal with no double vision. Fundi are not well seen. Mouth and throat are okay. The patient does have some missing teeth. NECK: Shows no masses. Neck is short and thick. Carotid pulses are normal. No bruits are heard. There is no axillary adenopathy. CHEST: Reveals scattered inspiratory rhonchi and faint diffuse expiratory rhonchi and wheezes with I:E ratio of about 1:2. HEART: Reveals sounds to be distant. S1 and S2 are normal with no distinct murmur. ABDOMEN: Obese with no organomegaly or mass. Bowel tones are normal. RECTAL: Reveals prostate gland to be a small and firm and somewhat irregular feeling. There are no rectal masses. Stool guaiac is negative. GENITALIA: Shows normal circumcised male with testes descended bilaterally. There is no evidence of hernia. Silveira catheter is in place. EXTREMITIES: Show trace edema, left and right. Peripheral pulses are normal with +2 dorsalis pedis pulses left and right. There is some ecchymosis and slight erythema and abrasion over right knee. Range of motion is okay. There is some ecchymosis over the extensor aspect of the left big toe with some discomfort with flexion of the IP joint. NEUROLOGIC: Reveals the patient to be alert and oriented x2-07/17. His knows that the month is September and the day is Sunday and the year is 2016. He is thinking the date is the rather than the . Motor and sensory examinations are otherwise normal with no focal abnormalities. Cranial nerves are symmetric. SKIN: Okay other than the bruised areas already mentioned. LAB/IMAGING: Laboratory studies show urine to be normal with specific gravity 1.010. A catheterized specimen shows no cells and no evidence of infection. Hemoglobin is 12.3, hematocrit is 36.3, white blood cell count is 7800. Sodium is 126, potassium 3.3, chloride 87, CO2 26, glucose 182, creatinine 2.1, BUN 28, magnesium 1.1. Total bilirubin is 0.5, SGOT is 27, SGPT is 20, lipase is 109, amylase is 40. CPK is 273 with CPK-MB at 3.2 and CPK-MB percent at 1.2. Troponin I is less than 0.05. D-dimer is 1.55. BNP is 59.3. Imaging studies show chest x-ray with some scattered interstitial stranding in the lower lung wang with no significant cardiomegaly and no distinct infiltrate. There are old right neurapraxias from the fifth through eighth rib. Brain CT scan is normal. Facial bone CT scan shows no evidence of fracture. Neck CT scan: Shows some significant degenerative disk changes at C3-C4 and C6- C7, but no fracture. Right knee x-rays are normal. X-rays of the left foot: Show a small avulsion fracture of the distal phalanx of the left big toe at the medial border of the interphalangeal joint. IMPRESSION: 1. The patient is presenting with a right periorbital contusion. He does not seem to have suffered a concussion or other major neurologic damage. He also has a right knee contusion and a small chip fracture of the distal phalanx of the left big toe, which should heal on its own. 2. Other problems include renal insufficiency. This may be due to relative dehydration. 3. He also has hypomagnesemia and decreased sodium level. This may be related to some of his medications and poor oral intake over the last 24 hours. 4. He has longstanding problems with osteoarthritis. 5. Obesity. 6. He has a history of prostate cancer, which seems to be fairly well- controlled. 7. He also has adult-onset diabetes with degree of control not known. PLAN: The patient has had magnesium replaced in the emergency department. He will have this rechecked in the morning to see if he needs additional magnesium. He has been hydrated with 2 L of fluid and we will continue normal saline with 20 mEq of potassium at 75 mL an hour overnight. Blood tests will be checked again in the morning to reevaluate kidney function and electrolyte balance. Additionally, he will be placed on sliding scale insulin, will have Accu-Cheks done before meals and at bedtime. He has underlying chronic obstructive pulmonary disease and bronchospasm. He will start on DuoNeb for this. He will be continued on low-flow oxygen to keep oxygen saturation greater than or equal to 92%. Currently, he is somewhat on the hypotensive side. He will not be started back on his antihypertensive medications, though his blood pressure indicates the need for this. We will try to get an accurate medication list from his outpatient [facility] in [place] tomorrow morning. His code status will be CHEMICAL CODE ONLY, per his request. He may benefit from a physical therapy evaluation tomorrow to assess his ambulatory function.
[2016-09-26] MEDS ORDERED: EXTRA STRENGTH500 MG PO (09:40)
[2016-09-26] MEDS ORDERED: ALBUTEROL HFA60 DOSE IN (09:47)
[2016-09-26] MEDS ORDERED: COMBIVENT RESPIMAT IN (09:49)
[2016-09-26] MEDS ORDERED: ASPIRIN EC325 MG PO (09:50)
[2016-09-26] MEDS ORDERED: CARVEDILOL25 MG PO (09:51)
[2016-09-26] MEDS ORDERED: ATORVASTATIN CA40 MG PO (09:51)
[2016-09-26] MEDS ORDERED: NEURONTIN300 MG PO (09:52)
[2016-09-26] MEDS ORDERED: MAXZIDE-25 PO (09:53)
[2016-09-26] MEDS ORDERED: [UNRECOGNIZED DRUG - OTHER] PO (09:55)
[2016-09-26] MEDS ORDERED: VITAMIN D33000 UNIT PO (09:56)
[2016-09-26] MEDS ORDERED: TERAZOSIN HCL1 MG PO (09:56)
--- NOTE | 2016-09-26 18:29 | DIAGNOSTIC IMAGING REPORT ---
REFERRING PHYSICIAN/PROVIDER: Everett Freeman MD CONSULTING MANAGER [employer]PORATE MARKETING: Julien James MD PROCEDURE: M-mode 2D echocardiography with spectral and color flow Doppler INDICATION: syncope Procedure: A two-dimensional transthoracic echocardiogram with color flow Doppler was performed. The study quality was technically difficult. The patient was in normal sinus rhythm during the exam. Left Ventricle: The left ventricle is mildly dilated. There is normal left ventricular wall thickness. Left ventricular systolic function is probably normal. Regional wall motion abnormalities cannot be excluded due to limited visualization. There is a significant dyssynchronous contraction pattern, consistent with a conduction abnormality. Right Ventricle: The right ventricle is mild to moderately dilated. The right ventricular systolic function is normal. Atria: Both atria are normal in size. Mitral Valve: The mitral valve is not well visualized. The mitral valve is grossly normal. There is no mitral regurgitation noted. Aortic Valve: The aortic valve is not well visualized. There is no hemodynamically significant valvular aortic stenosis. There is no aortic regurgitation. Tricuspid Valve: The tricuspid valve is not well visualized, but is grossly normal. No tricuspid regurgitation. Pulmonary artery pressures cannot be estimated because of the lack of a measurable TR jet velocity. Pulmonic Valve: The pulmonic valve is not well visualized. Great Vessels: The aortic root is normal size. The dimensions of the ascending aorta are normal. The IVC is of normal diameter and collapses greater than 50% with a sniff. This suggests a low right atrial pressure of 3 mm Hg. Pericardium/ Pleura There is no pericardial effusion. IMPRESSION: The left ventricle is mildly dilated. Left ventricular systolic function is probably normal. Regional wall motion abnormalities cannot be excluded due to limited visualization. There is a significant dyssynchronous contraction pattern, consistent with a conduction abnormality. The right ventricle is mild to moderately dilated. The right ventricular systolic function is normal. Pulmonary artery pressures cannot be estimated because of the lack of a measurable TR jet velocity. Both atria are normal in size. No gross valvular abnormalities. The aortic root is normal size.
[2016-09-27 01:59] VITALS: BP 121/51
[2016-09-27 06:46] VITALS: BP 132/74
--- NOTE | 2016-09-27 11:24 | Provider's Discharge Care Plan ---
Problem, Goal, Plan Problem List 1. Hypotension Instructions: - secondary to medication lowering blood pressure significantly - will hold the HCTZ-triamterene - pt will need to follow up with his primary care provider as an outpatient - if blood pressure is persistenly elevated patient should have the drug re-introduced 2. Syncope Instructions: - secondary to hypotension, once medication was held patient had negative orthostatics and normal blood pressure - no obvious deficits on echocardiogram
--- NOTE | 2016-09-27 12:04 | Discharge Summary ---
Discharge Summary Report Admit Date 09/25/16 Discharge Date 09/27/16 Admission Diagnosis Hypotension and syncope Discharge Diagnosis hypotension due to antihypertensive overuse Brief History The patient is a 70-year-old white male who became weak and lost his balance as he was getting up from a commode yesterday evening, 09/24/2016. He fell forward and struck his right facial area on the door frame, he thinks, and then fell to the floor on the anterior chest and knee area on the right side and stubbed the toe of his left foot into the floor. He was able to get up. He decided he was okay and waited until this morning to see how he was feeling. He felt quite short of breath and felt he should have this checked out. He called 9-1-1 and was transferred here to [facility]. He did show somewhat low oxygen saturations in the emergency department and had an elevated D-dimer of 1.55. He had a lung V/Q scan in place of pulmonary angiogram due to decreased kidney function. This showed no evidence of pulmonary embolus. Due to his weakness and somewhat unsteadiness he is admitted to observation. Hospital Course Patient was admitted for the syncope and facial contusion. Patient did not have any underlying anatomical pathology secondary to the fall. Patient did have persistent hypotension, which was corrected by iv fluid infusion. Patient was restarted on his home medication one by one, and a steady state blood pressure was acheived. Currently patient has all his home medications restarted except for the hctz/triamterene. Which the patient was told to hold for the time being. Patient lastly had an echocardiogram which did not reveal an etiology for why the patient had the syncopal event. Patient will be discharged, he will follow up with his pmd within two weeks. He will resume all his home medications except for the hctz/triamterene. Patient will meet with his physician and at that point the primary care physician will restart the medication as needed. General Appearance Alert, Oriented X3, No acute distress Lungs Normal air movement Cardiovascular Normal S1, Normal S2, No murmurs, Gallops, Rubs Abdomen Soft, No tenderness, No hepatospenomegaly, No masses Skin No Breakdown, No Significant Lesions Neurological Normal speech, Normal tone, Sensation intact, Cranial nerves 3-12 NL Discharge Instructions/Meds - take medications as prescribed - avoid HCTZ/triamterene until you see your primary care provider
== END 2016-09-27 14:50 | disposition home or self-care (01) ==
LOC: ED SRH 12:44 → ACUTE2 SRH 21:25 → TRANS SRH 21:25 → ACUTE2 SRH 23:14
PROVIDERS: ADMIT Family Medicine
PROC: 0T9B70Z Drainage of Bladder with Drainage Device, Via Natural or Artificial Opening (ICD-10-PCS; principal; 2016-09-25)
DX: I95.2 Hypotension due to drugs (principal); T50.2X5A Adverse effect of carbonic-anhydrase inhibitors, benzothiadiazides and other diuretics, initial encounter; S00.11XA Contusion of right eyelid and periocular area, initial encounter; S80.01XA Contusion of right knee, initial encounter; W18.12XA Fall from or off toilet with subsequent striking against object, initial encounter; Y93.E8 Activity, other personal hygiene; Y92.002 Bathroom of unspecified non-institutional (private) residence as the place of occurrence of the external cause; Y99.8 Other external cause status; S92.425A Nondisplaced fracture of distal phalanx of left great toe, initial encounter for closed fracture; N28.9 Disorder of kidney and ureter, unspecified; E83.42 Hypomagnesemia; E87.1 Hypo-osmolality and hyponatremia; E86.0 Dehydration; E11.9 Type 2 diabetes mellitus without complications; Z79.84 Long term (current) use of oral hypoglycemic drugs; J44.9 Chronic obstructive pulmonary disease, unspecified; E66.9 Obesity, unspecified; Z68.39 Body mass index [BMI] 39.0-39.9, adult; Z72.0 Tobacco use

== ENCOUNTER 2016-11-24 04:24 | Inpatient (IN) | payer OTHER ==
[~2016-11-24] VITALS: Ht 180.3 cm; Wt 120.6 kg
[2016-11-24] VITALS (15 sets, daily range): BP systolic 89–136; BP diastolic 36–73
[~2016-11-24 04:24] MED LIST: ALBUTEROL HFA60 DOSE IN; ASPIRIN EC325 MG PO; ATORVASTATIN CA40 MG PO; CARVEDILOL25 MG PO; COMBIVENT RESPIMAT IN; EXTRA STRENGTH500 MG PO; MAXZIDE-25 PO; NEURONTIN300 MG PO; TERAZOSIN HCL1 MG PO; VITAMIN D33000 UNIT PO; [UNRECOGNIZED DRUG - OTHER] PO
--- NOTE | 2016-11-24 06:46 | ED ORDER SUMMARY ---
..... Patient: MARY ACOSTA OrderSheet [facility] VisitID: [id number] [address] [place] [address] 71y, M Registration Date/Time: 11/24/2016 ORDER SHEET Weight: 120 kg (measured) Allergies: No Known Drug Allergy GENERAL ORDERS: Chest 1V Urgent (04:50 11/24/2016 Vielka Miller) (Ack 5:09 LMuller) (5:49 LMuller) Calender Wind Up Helper (Continuous) (Respiratory Distress) (04:51 11/24/2016 Vielka Miller) (4:52 HSoule) Oxygen (titrate to sats > 90) (NC) (:51 11/24/2016 Vielka Miller) (4:52 HSoule) CT Abd/Pel w Cont (Yes) (N/A) Urgent (04:51 11/24/2016 Vielka Miller) (Ack 5:09 LMuller) (5:49 LMuller) CBC w Diff Urgent (04:52 11/24/2016 Vielka Miller) (5:10 LMuller) CMP Urgent (04:52 11/24/2016 Vielka Miller) (Ack 5:09 LMuller) (5:10 LMuller) UA-Culture if indicated Urgent (04:52 11/24/2016 Vielka Miller) (Ack 5:09 LMuller) (6:04 LMuller) PT with INR Urgent (04:52 11/24/2016 Vielka Miller) (Ack 5:09 LMuller) (5:10 LMuller) PTT Urgent (04:52 11/24/2016 Vielka Miller) (Ack 5:09 LMuller) (5:10 LMuller) Troponin-I Urgent (04:52 11/24/2016 Vielka Miller) (Ack 5:09 LMuller) (5:10 LMuller) D-Dimer Urgent (04:11/24/2016 Vielka Miller) (Ack 5:09 LMuller) (5:10 LMuller) BNP Urgent (04:11/24/2016 Vielka Miller) (Ack 5:09 LMuller) (5:09 LMuller) TSH Urgent (04:52 11/24/2016 Vielka Miller) (Ack 5:09 LMuller) (5:09 LMuller) Pulse oximeter (04:52 11/24/2016 Vielka Miller) (4:52 HSoule) Blood Culture (No) (N/A) Urgent (04:55 11/24/2016 Vielka Miller) (Ack 5:09 LMuller) (5:09 LMuller) Lactate, Serum Urgent (04:55 11/24/2016 Vielka Miller) (Ack 5:09 LMuller) (5:09 LMuller) Abdomen 1V Urgent (05:05 11/24/2016 Vielka Miller) (Ack 5:09 LMuller) (5:49 LMuller) ABG (G) Urgent (06:33 11/24/2016 Vielka Miller) (Ack 6:41 LMuller) (8:51 JRomanelli R.N.) PCT (Procalcitonin) Urgent (06:34 11/24/2016 Vielka Miller) (Ack 6:41 LMuller) (8:51 JRomanroz R.N.) - (cortisol) (06:35 11/24/2016 Vielka Miller) (Ack 6:41 LMuller) (8:51 JRomanelli R.N.) MEDICATION ORDERS: DuoNeb Neb Tx 1 unit dose (NOW) (04:51 11/24/2016 Vielka Miller) (4:53 HSoule) Potassium Chloride PO 60 meq (NOW) (05:43 11/24/2016 Vielka Miller) (Ack 5:43 HSoule) (5:50 HSoule) IV FLUIDS: IV NS : initial bolus 2L, then none - for X1 (NOW) (04:51 11/24/2016 Vielka Miller) (4:53 HSoule) Cefepime IV 2 gm/50mL (NOW) (05:41 11/24/2016 Vielka Miller) (Ack 5:43 HSoule) (6:04 HSoule) Levaquin IV 750 mg/150 mL (NOW) (05:42 11/24/2016 Vielka Miller) (Ack 5:43 HSoule) (5:49 HSoule) Fentanyl IV 50 mcg (HIGH ALERT MEDICATION, NOW) (06:06 11/24/2016 Vielka Miller) (6:09 HSoule) Solu-MEDROL IV 125 mg (NOW) (06:22 11/24/2016 Vielka Miller) (Ack 6:22 HSoule) (6:33 HSoule) Zofran IV 4 mg (NOW) (09:19 11/24/2016 Luis Covington verbal order read back to Vielka Miller) (9:20 Luis Covington) ORDER SHEET NOTES: [Electronically signed by Vineet Buck R.N. (11:59 11/24/2016)] [Electronically signed by Gilbert Escobar Dr. (21:23 11/24/2016)] [Electronically locked/signed by Vineet Buck R.N. (11:59 11/24/2016)]
--- NOTE | 2016-11-24 06:46 | ED CLINICAL REPORT ---
Clinical Report - Physicians/Mid Levels [facility] [address] [place] [address] 11/24/2016 4:25 Patient: MARY ACOSTA Time Seen: 0445. Arrived- By ambulance. Historian- patient and EMS personnel. HISTORY OF PRESENT ILLNESS Chief Complaint: ABDOMINAL PAIN. At its maximum, severity described as severe. When seen in the E.D., severity described as severe. Modifying factors- worsened by movement. Relieved by rest. It is described as sharp and cramping. No radiation. It is described as located in the lower abdomen. This started past 4 - 5 days and is still present and worsening. It was abrupt in onset and has been constant but is not gone now. No nausea, loss of appetite, vomiting or diarrhea. No additional abdominal pain. (also with SOB. states he smokes and "if I don't have COPD, I probably do now." states he does not feel is shortness of breath and pain are related. no hemoptysis, leg swelling, recent trauma, or surgeries. No hx of PE or DVT.). No recent travel. Similar symptoms previously: None. Recent medical care: Not recently seen/assessed. REVIEW OF SYSTEMS No constipation, black stools, hematemesis, bloody stools or fever. No chest pain. He has had a cough. All systems otherwise negative, except as recorded above. PAST HISTORY See nurses notes. Medications: ASA Oral. Albuterol Sulfate Inhalation. Lisinopril Oral. Carvedilol Phosphate ER Oral. Allergies: No Known Drug Allergy. SOCIAL HISTORY Smoker- current status unknown. No alcohol use or drug use. No recent travel. Is a local resident. ADDITIONAL NOTES The nursing notes have been reviewed. PHYSICAL EXAM Vital Signs: 11/24/2016 04:35 BP: 103/78. 11/24/2016 04:30 BP: 85/41. HR: 77. RR: 25. O2 saturation: 90%. Blood pressure normal. Oxygen saturation normal. Appearance: Alert. Oriented X3. Patient in mild distress. (non-toxic). Eyes: Pupils equal, round and reactive to light. Eyes normal inspection. ENT: Ears normal. Nose normal. Pharynx normal. Neck: Normal inspection. Neck supple. No meningeal signs. CVS: Normal heart rate and rhythm. Heart sounds normal. Pulses normal. Respiratory: No respiratory distress. Expiratory moderate bilateral wheezes diffusely. Mild bilateral rhonchi present in the bases. Mild rales present in the bases bilaterally. Breath sounds normal. Chest nontender. Abdomen: Soft. Bowel sounds normal. (reducible non-tender small umbilical hernia. lower abdominal tenderness on the left. no masses. no tednerness at mcburney's. negative rovsigns. negative kamran's. no pulsatile mass). Back: Normal inspection. Skin: Skin warm and dry. Normal skin color. No rash. Normal skin turgor. Extremities: Extremities exhibit normal ROM. No lower extremity edema. Neuro: Oriented X 3. No motor deficit. No sensory deficit. LABS, X-RAYS, AND EKG EKG: No acute ischemia. Normal sinus rhythm. Rate: 74. Normal P waves. Normal NATALIIA. Normal QRS complex. Normal axis. Normal ST and T waves, QT and QTc. Partial LBBB. Not a STEMI. The study has been interpreted contemporaneously. The study has been independently viewed by me. Artifact present. I do not agree with or confirm the computer reading of the EKG. Chest X-ray: Infiltrate in the right lower lobe and left lower lobe. Consistent with pneumonia. (bilateral pneuonia vs CHF). Views: AP (portable). The X-rays were independently viewed by me and interpreted contemporaneously by me. Abdominal CT: sigmoid diverticulosis. Study type: abdomen and pelvis. Abdominal CT performed with IV contrast. The study was independently viewed by me and interpreted by the radiologist. The study was discussed with the radiologist (via fax). Laboratory Tests: UA-Culture if indicated: (ELENA: 11/24/2016 06:00) ( MsgRcvd 11/24/2016 06:16) Final results Test Result Flag Units (Reference) URINE COLOR YELLOW URINE APPEARANCE CLEAR URINE GLUCOSE TRACE (NEGATIVE) URINE BILIRUBIN NEGATIVE (NEGATIVE) URINE KETONE TRACE (NEGATIVE) URINE SPECIFIC GRAVITY <= 1.005 L (1.010-1.030) URINE PH 6.0 (5.0-8.0) URINE PROTEIN 1+ (NEGATIVE) URINE UROBILINOGEN 0.2 EU/dL (0.2-1.0) URINE NITRITE NEGATIVE (NEGATIVE) URINE BLOOD 1+ (NEGATIVE) URINE LEUK ESTERASE NEGATIVE (NEGATIVE) URINE RBC RARE rbc/hpf (0-1) URINE WBC 0-1 wbc/hpf (0-1) URINE EPITHELIAL CELLS 0-1 EPI/hpf (0-5) URINE BACTERIA TRACE (<1+) (NONE SEEN) URINE COMMENT CULT NOT INDICATED RARE HYALINE CASTURINE CULTURES ARE SET-UP BASED ON THE FOLLOWING CRITERIA:POSITIVE NITRITEPOSITIVE LEUKOCYTE ESTERASEGREATER THAN 10 WHITE BLOOD CELLSMODERATE (2+) OR GREATER BACTERIA CBC w Diff: (ELENA: 11/24/2016 05:00) ( MsgRcvd 11/24/2016 05:27) Final results Test Result Flag Units (Reference) WHITE BLOOD COUNT 9.6 K/uL (4.5-11.5) RED BLOOD COUNT 3.58 L M/uL (4.50-5.90) HEMOGLOBIN 11.3 L gm/dL (13.5-17.5) HEMATOCRIT 33.8 L % (41.0-53.0) MEAN CELL VOLUME 95 fL (80-100) MEAN CORPUSCULAR HGB 32 pg (26-34) MEAN CORPUSCULAR HGB CONC 34 g/dL (31-37) RED CELL DISTRIBUTION WIDTH 15.4 H % (11.6-14.8) PLATELET COUNT 229 K/uL (150-400) NEUTROPHIL % 76.5 H % (50-75) LYMPH % 12.5 L % (25-40) MONO % 10.3 % (3-14) EOSINOPHIL % 0.5 % (0-4) BASOPHIL % 0.2 % (0-2) PT with INR: (ELENA: 11/24/2016 05:00) ( MsgRcvd 11/24/2016 05:29) Final results Test Result Flag Units (Reference) INR 1.0 (0.8-1.2) Low Intensity Therapy: INR 1.5-2.0 PT range 18.5-23.1Mod.Intensity Therapy: INR 2.0-3.0 PT range 23.1-31.5High Intensity Therapy: INR 2.5-3.5 PT range 27.4-35.5High Intensity Therapy 2: INR 3.0-4.0 PT range 31.5-39.3 APTT 29 SECONDS (24-34) D-DIMER QUANTITATIVE 1.26 H ug/mLFEU (0.27-0.52) The primary value of this quantitative assay relates toits negative predictive value (i.e. exclusion) of pulmonaryembolism/deep vein thrombosis/DIC.Elevated levels of d-dimer may also occur with:, age, cancer, inflammation, liver disease,post-op, infection, hematoma, coronary disease, peripheralarteriopathy, bleeding disorders and thrombolytic treatment.Results should be correlated with other clinical andradiological data.Testing Methodology: Latex Immunoassay BNP: (ELENA: 11/24/2016 05:00) ( [facility] 11/24/2016 05:45) Final results Test Result Flag Units (Reference) B-TYPE NATRIURETIC PEPTIDE 217 H pg/ml (5-100) CMP: (ELENA: 11/24/2016 05:00) ( [facility] 11/24/2016 05:43) Final results Test Result Flag Units (Reference) GLUCOSE 117 H mg/dL (70-110) BUN 34 H mg/dL (7-18) CREATININE 2.5 H mg/dL (0.6-1.3) Estimated GFR 27.27 mL/min Estimated GFR- 33.05 mL/min Note: Persistent reduction over 3 months in eGFR<60 mL/min/1.73 m2 defines CKD. Patients with eGFR values>=60 mL/min/1.73 m2 may also have CKD if evidence ofpersistent proteinuria. Additional information may be foundat www.[email or web address].org. SODIUM 126 L mmol/L (136-145) POTASSIUM 2.6 *L mmol/L (3.5-5.1) CRITICAL RESULTS CALLEDCalled to GREY PORRAS RN 11/24/16 0542Were 2 patient identifiers used? YWas the result read back? Y CHLORIDE 84 L mmol/L (98-107) CARBON DIOXIDE 28 mmol/L (21-32) CALCIUM 7.9 L mg/dL (8.5-10.1) TOTAL PROTEIN 6.8 g/dL (6.4-8.2) ALBUMIN 3.2 L g/dL (3.3-5.0) BILIRUBIN, TOTAL 0.9 mg/dL (0.0-1.0) ALKALINE PHOSPHATASE 101 U/L (46-116) AST (SGOT) 54 H U/L (15-37) ALT (SGPT) 42 U/L (12-78) MAGNESIUM 1.2 L mg/dL (1.8-2.4) TROPONIN I <0.05 ng/mL (0.00-1.5) TROPONIN REFERENCE RANGE:<0.1 NEGATIVE0.1-1.5 INDETERMINANT>1.5 POSITIVE THYROID STIMULATING HORMONE 1.175 uIU/mL (0.30-3.74) . PROGRESS AND PROCEDURES Course of Care: the patient is a pleasant 8-year-old male with complex past medical history presenting for evaluation of abdominal pain and shortness of breath. On EMSs initial evaluation, patient was noted to be hypertensive at 160s systolic. When patient is here in the emergency department he is noted to be mildly hypotensive. Because of the patient's abdominal pain and change in blood pressure, would be concern for abdominal aortic dissection. Patient was noted to be increasingly hypotensive while here in the emergency department. And several fluid boluses were ordered. 3 IV access sites were obtained. An patient was monitored closely. Patient is also noted to be wheezing on examination and albuterol treatment was provided. Chest x-rays obtained. Patient was also noted to be critical and a abdominal film was obtained to evaluate for any obvious signs of intra-abdominal pathology. Bedside ultrasound was also used to evaluate the patient's abdomen. Gallbladder was noted and found to be unremarkable. Unable to see patient's aorta. Bladder is noted to be unremarkable. No free fluid noted on patient's abdominal examination otherwise. Patient had improved with the fluid boluses and went from severely hypotensive to mildly hypotensive. Please see vital sign flowsheet for further details. Because of the patient's improved blood pressure, it was extremely important to determine the etiology of the patient's abdominal pain and hypotension. CT scan of the abdomen and pelvis was ordered with contrast. Patient was accompanied to the CT scanner personally. Patient was monitored and transferred to the CT table by me personally. Patient was monitored and had the scan obtained uneventfully. Scan was pending at that time. Patient's blood pressure had significantly improved with the fluid boluses. also had a discussion with the patient in regards to advance directives. Patient wished to be A no code. Patient does not want to be intubated or put on a ventilator. this conversation had occurred prior to patient becoming severely hypotensive. He was alert and oriented 3 when this had occurred. Patient also reports having filled out an advanced directive form or having is similar discussion on his last visit to the emergency department. Patient states that he has not changes mind and still wished to be a no code. Patient's laboratory studies had returned. Patient noted to be hypokalemia, hyponatremic, with likely COPD exacerbation. Because of the patient's electrolyte abnormalities and hypotension, would be concerned for adrenal insufficiency. Steroids were provided. Patient also required Silveira catheter for urinalysis because he was unable to produce A urine sample. We were able to successfully catheterize the patient and obtaining a urine sample. Appears to be colin in color and clear. The patient's laboratory was noted for the findings above. Lactic acid is noted to be normal. Because the patient's severe hypotension and electrolyte abnormalities, feel the patient needed to be admitted to the intensive care unit. Had spoken to the hospitalist who will accept the patient. In the buttocks or even started empirically for COPD exacerbation. hospitalist also recommended to obtain a cortisol level as well as a PCT. These laboratory studies have been added. Patient was admitted to intensive care unit. Prior to patient's departure from the emergency department his blood pressure had noted to be slightly improved however still slightly hypotensive. Patient's condition remains critical. Critical care performed (65 minutes). Time is exclusive of separately billable procedures. Time includes: direct patient care, patient reassessment, coordination of patient care, interpretation of data (laboratory data), review of patient's medical records, medical consultation and documentation of patient care. Disposition: Admitted to the Critical Care Unit. Condition: critical. CLINICAL IMPRESSION hypotension, severe hyponatremia hypokalemia COPD exacerbation lower abdominal pain. (Electronically signed by Gilbert Escobar Dr. 11/24/2016 21:23)
--- NOTE | 2016-11-24 06:46 | ED NURSING NOTES ---
Clinical Report - Nurses [facility] [address] [place] [address] 11/24/2016 4:25 Patient: MARY ACOSTA TRIAGE Triage time 04:Nov 24 2016. Acuity: LEVEL 2. Chief Complaint: (Abdominal pain, shortness of breath). WM COMA SCORE: Wm Coma Scale: 15- eyes open spontaneously (4); best verbal response- oriented x 4 (5); best motor response- obeys commands (6). --04:35 Rosalee Wilks 04:30 11/24/16. BP: 85/41 taken on the right arm. HR: 77. RR: 25. O2 saturation: 90% on room air. Additional comments: NC applied . --04:35 Rosalee Wilks 04:35 11/24/16. BP: 103/78 taken on the left arm. --04:36 Rosalee Wilks 04:36 11/24/16. Temp: 98.1 F (oral). --04:37 Rosalee Wilks SEPSIS SCREEN: Sepsis Screen: negative. Infection suspected/documented. --04:38 Rosalee Wilks. Weight: 120 kg measured. Height/Length: 71 inches Measured. BMI: 36.9. --04:36 Rosalee Wilks. Medications Carvedilol Phosphate ER Oral. --04:33 Rosalee Wilks Lisinopril Oral. --04:33 Rosalee Wilks Albuterol Sulfate Inhalation. --04:34 Rosalee Wilks ASA Oral. --04:34 Rosalee Wilks. Medication/allergy information source: EMS. --04:35 Rosalee Wilks. Allergies No Known Drug Allergy. --04:33 Rosalee Wilks. History Arrived by EMS. Historian: EMS and patient. Unaccompanied. This started just prior to arrival. ( EMS reports patient called for lower abdominal pain related to hernia. Patient complains of shortness of breath. EMS reports that the patient oxygen saturation was 81%. The patient reports numbness in his lower extremities. EMS reports the patient complained of a fall yesterday due to a syncopal episode. EMS reports they found the patient to be hyportensive on route and called a medic union to meet them.). --04:35 Rosalee Wilks The patient has had a cough. PAST MEDICAL HX: Immunizations: status is unknown. SOCIAL HX: Light tobacco smoker (cigarette)- less than 1/2 a pack per day. Regular alcohol use. No drug use. No infectious disease exposure. ABUSE ASSESSMENT: No report of abuse. FALL RISK ASSESSMENT: Fall risk assessment completed. No fall risk identified. NUTRITIONAL RISK ASSESSMENT: The nutritional risk assessment revealed no deficiencies. FUNCTIONAL ASSESSMENT: Functional assessment: no impairments noted. LEARNING NEEDS ASSESSMENT: The learning needs assessment revealed no barriers. --04:37 Rosalee Wilks [facility] ([facility]). --04:37 Rosalee Wilks Treatment SWATCH CHECKER: See EMS report. EMS treatment SWATCH CHECKER verbally communicated and report reviewed. See report. Oxygen administered by nasal cannula. Pulse oximeter applied. conveyor monitor applied. Pre-hospital 12-lead EKG. ( EMS report initial BP 168/palp report BP upon arrival to facility 80/50 EMS report medic was called as patient appeared to have respiratory distress). --04:43 Rosalee Wilks Treatment SWATCH CHECKER: Finger stick glucose performed (131). --04:58 Rosalee Wilks. PROBLEMS: Fractured Phalanx (Toe). Contusion. Hypoxia. Hypotension. Heart Disease. Fall. CVA - Cerebrovascular Accident. Hypertension. Diabetes Mellitus. Prostate cancer. Diabete. Copd. Hypertension. Hype. --04:34 Rosalee Wilks. ADDITIONAL SURGERIES: Neck Surgery. --04:34 Rosalee Wilks. Interventions ID band on patient. To treatment room. --04:35 Rosalee Wilks. PHYSICAL ASSESSMENT To room via stretcher. GENERAL / NEURO / PSYCH: Alert. Oriented X 4. Appears in distress. HEENT: Pupils equal, round and reactive to light. Mucous membranes are pink. RESPIRATORY: Moderate respiratory distress. The patient can speak a few words at a time. Decreased breath sounds in the bases bilaterally. Wheezing present. GI / : Abdomen soft and nontender and normal bowel sounds. EXTREMITIES: Bilateral 2+ pitting edema of the lower extremities involving both feet and both ankles. SKIN: Skin is dry. --04:39 Rosalee Wilks. NURSING PROGRESS NOTES 04:29 11/24/2016 Site #1 started prior to arrival by EMS via IV in the left wrist with an 20g angiocath; one attempt. Saline lock flushed with 10 mL saline. --04:39 Rosalee Wilks Patient ID band checked for patient name and birthdate: patient confirmed. Blood samples drawn from the left wrist peripheral IV site with butterfly by nurse ; labeled in presence of the patient and sent to lab: rainbow set. Additional blood sent to lab. Line flushed with 10 mL normal saline post blood draw. --04:40 Rosalee Wilks 04:41 11/24/16. Oxygen administered by nasal cannula at 2 liters. conveyor monitor, pulse oximeter and NIBP monitor placed on patient; monitor alarms on. Patient gowned. Head of bed elevated. Warming measures: blanket applied. Reassurance given to the patient. Two patient identifiers checked. Call light placed in reach. Side rails up x 1. Bed placed in lowest position. Brakes of bed on. Patient ready for evaluation- chart flagged and ED physician notified. ( RT at bedside). --04:41 Rosalee Wilks ( RT at beside administering breathing treatment. Patient states to provider, "if anything happens just let me go". Patient believes he created an advanced directive last time he was here in the hospital. He reports he has no family and he does not want life saving measures.). --04:42 Rosalee Wilks EKG time: (04:42 Nov 24 2016). EKG was performed by a tech and shown to the ED physician. --04:42 Rosalee Wilks 04:51 11/24/16. BP: 44/32. Additional comments: Provider aware, orders to administer 2 L NS at 1000 ml per hour . --04:52 Rosalee Wilks 04:43 11/24/2016 Duoneb (Ipratropium-Albuterol) Neb TX Nebulizer 1 unit dose given. Given by the respiratory therapist. Allergies verified and confirmed 5 rights. --04:53 Rosalee Wilks 04:52 11/24/2016 Site #2 started via IV in the right hand with an 20g angiocath, with aseptic technique and good blood return; one attempt. Saline lock flushed with 10 mL saline. --04:52 EfeSilvestreRosalee 04:53 11/24/2016 Started bag #1 1000 mL IV Fluids IV NS (Saline); at 1000 mL/hr over 1 hour(s) via site #1. Allergies verified and confirmed 5 rights. IV patency established. IV site checked: no pain, redness, or swelling. IV flushed thoroughly pre- and post-medication administration (On pressure bag per provider order). --04:53 Rosalee Wilks 04:53 11/24/16. BP: 51/36. HR: 73. RR: 18. O2 saturation: 95% on nasal cannula at 4 liters/minute. Pain level now: 02/22. --04:55 Rosalee Wilks 04:56 11/24/2016 Site #3 started via IV in the right antecubital space with an 18g angiocath; one attempt. Blood drawn: rainbow set and cultures x1. Labeled in the presence of the patient and sent to the lab. Saline lock flushed with 10 mL saline (Lactate drawn). --04:56 Rosalee Wilks Blood samples drawn from the peripheral IV site: rainbow set: blood culture (1st set). Initial blood discarded and additional blood sent to lab. Line flushed with 10 mL normal saline post blood draw. --04:58 Rosalee Wilks ( Provider at bedside to perform ultrasound). --04:59 Rosalee Wilks 05:02 11/24/16. BP: 61/29. HR: 70. RR: 18. O2 saturation: 98% on nasal cannula at 4 liters/minute. --05:02 Rosalee Wilks 04:50 11/24/2016 Started bag #2 1000 mL IV Fluids IV NS (Saline); at 1000 mL/hr over 1 hour(s) via site #2. Allergies verified and confirmed 5 rights. IV patency established. IV site checked: no pain, redness, or swelling. IV flushed thoroughly pre- and post-medication administration (On pressure bag per provider order). --05:05 Rosalee Wilks 05:07 11/24/16. BP: 58/21 taken on the left arm, manually. --05:09 Rosalee Wilks 05:09 11/24/16. BP: 58/30 taken on the right arm, manually. --05:09 EfeSilvestre larrynah ( Radiology at bedside). --05:09 Rosalee Wilks 05:14 11/24/16. BP: 68/46. HR: 73. RR: 20. O2 saturation: 96% on nasal cannula at 4 liters/minute. --05:17 EfeSilvestre larrynah Reassessment after oxygen and fluids administered. SKIN: Moderately pallid. --05:19 Silvestre Wilksnah 05:17 11/24/16. BP: 76/45. HR: 71. O2 saturation: 96%. --05:19 Rosalee Wilks 05:21 11/24/16. BP: 80/43. HR: 77. RR: 18. O2 saturation: 98% on nasal cannula at 4 liters/minute. --05:22 Rosalee Wilks Patient transported to CT by stretcher with O2, monitor, nurse and tech. (05:29 Nov 24 2016). ( Provider accompanying patient to CT). --05:29 Rosalee Wilks Patient returned from CT by stretcher with nurse and tech. (05:42 Nov 24 2016). --05:42 Rosalee Wilks 05:42 11/24/16. BP: 86/44. HR: 75. RR: 17. O2 saturation: 95% on nasal cannula at 4 liters/minute. --05:43 EfeSilvestre larrynah Critical value relayed to ED by lab. Critical value received by zhou. K: 2.6. Critical value read back. Verified lab result and patient ID. ED physician notifed of critical value. Orders were received. --05:44 Nadya Holguin 05:35 11/24/2016 IV Fluids IV NS Discontinued: bag #1 completed. Total amount infused: 1000 mL. IV patency established. IV site checked: no pain, redness, or swelling. IV flushed thoroughly. --05:50 Rosalee Wilks 05:45 11/24/2016 IV Fluids IV NS Discontinued: bag #2 completed. Total amount infused: 1000 mL. IV patency established. IV site checked: no pain, redness, or swelling. IV flushed thoroughly. --05:50 Rosalee Wilks 05:49 11/24/2016 Started 750 mg of Levaquin (Levofloxacin) IVPB in bag #1 150 mL; at 100 mL/hr over 1.5 hour(s) via site #3 via IV pump. Allergies verified and confirmed 5 rights. IV patency established. IV site checked: no pain, redness, or swelling. IV flushed thoroughly pre- and post-medication administration. --05:49 Rosalee Wilks 05:50 11/24/2016 Potassium Chloride (Potassium Chloride ER) PO Tablets 60 meq given. Allergies verified and confirmed 5 rights. --05:50 Rosalee Wilks 05:50 11/24/16. BP: 89/41. HR: 72. RR: 18. O2 saturation: 94% on nasal cannula at 4 liters/minute. Pain level now: 8/10. --05:50 Rosalee Wilks 05:59 11/24/2016 Started 2 gm of Cefepime IVPB in bag #1 50 mL; at 140 mL/hr over 10 minute(s) via site #1 via IV pump. Allergies verified and confirmed 5 rights. IV patency established. IV site checked: no pain, redness, or swelling. IV flushed thoroughly pre- and post-medication administration. --06:04 Rosalee Wilks 06:04 11/24/16. BP: 98/44. HR: 72. RR: 17. O2 saturation: 97% on nasal cannula at 4 liters/minute. --06:04 Rosalee Wilks Silveira catheter. Reason for indwelling catheter: critical need to monitor intake and output. During procedure hand hygiene observed and sterile equipment and aseptic technique used. Return of 200 mL colin-colored clear urine; secured with strap. He tolerated procedure well. --06:05 Rosalee Wilks Patient ID band checked for patient name and birthdate: patient confirmed. Instructions provided to collect clean catch urine and patient verbalized understanding. Catheterized urine collected with return of colin-colored clear urine; odor is normal; sample sent to lab for urinalysis and culture. Specimen labeled in the presence of the patient. --06:05 Rosalee Wilks 06:09 11/24/2016 Fentanyl IVP 50 mcg given over 1 minute(s) via site #2. Allergies verified, confirmed 5 rights and sedative warning given to the patient. IV patency established. IV site checked: no pain, redness, or swelling. IV flushed thoroughly pre- and post-medication administration. IVP given by RN. --06:09 Rosalee Wilks 06:09 11/24/16. BP: 72/37. HR: 71. RR: 18. O2 saturation: 97% on nasal cannula at 4 liters/minute. Pain level now: 610. Additional comments: Provider notified . --06:18 Rosalee Wilks Reassessment after fluids administered and medication administered. Overall patient status- he states feels better. --06:18 Rosalee Wilks ( Patient states, " [facility] I pass [facility]".). --06:22 Rosalee Wilks 06:22 11/24/16. BP: 70/43. HR: 70. RR: 20. O2 saturation: 95% on nasal cannula at 4 liters/minute. --06:22 Rosalee Wilks 06:31 11/24/16. BP: 70/29. HR: 73. RR: 18. O2 saturation: 94% on nasal cannula at 4 liters/minute. Pain level now: 6/10. --06:32 Rosalee Wilks ( Patient skin cleaned and barrier cream applied. Patient has areas of redness on scrotum and buttock. Patient assisted to his side per his request, pillows used to create a comfortable position. Patient making jokes and in good spirits despite discomfort.). --06:32 Rosalee Wilks 06:40 11/24/16. BP: 70/29. HR: 73. RR: 20. O2 saturation: 95% on nasal cannula at 4 liters/minute. --06:41 Rosalee Wilks Reassurance given to the patient. ( Patient asked if he would like any family notified, he reports its only his sister that is living and he does not want to call her at this time. Discussed with patient to clarify his wished if he were to need life saving measures. Patient states again he does not want CPR or intubation. He reports he would like medications, fluids, monitoring and to be kept comfortable. He reiterates to nurse that he would [facility]. Provider aware of patient wishes.). --06:47 EfeSilvestre larrynah 06:47 11/24/16. BP: 86/35. HR: 73. RR: 20. O2 saturation: 94% on nasal cannula at 4 liters/minute. --06:47 Rosalee Wilks ( RT at bedside to perform ABG). --06:47 Efe Rosalee 07:05 11/24/16. BP: 95/47. HR: 71. RR: 20. O2 saturation: 95% on nasal cannula at 4 liters/minute. Pain level now: 4. --07:05 Vineet Buck RAnnaNAnna 06:20 11/24/2016 Cefepime IVPB Discontinued: bag #1 infused. Total amount infused: 50 mL. IV patency established. IV site checked: no pain, redness, or swelling. IV flushed thoroughly. (Cefeprime IVPB). --07:24 Vineet Buck R.NAnna 06:28 11/24/2016 SOLU-MEDROL (MethylPREDNISolone Sodium Succ) IVP 125 mg given over 2 minute(s) via site #2. Allergies verified and confirmed 5 rights. IV patency established. IV site checked: no pain, redness, or swelling. IV flushed thoroughly pre- and post-medication administration. IVP given by RN. --06:33 Rosalee Wilks 07:21 11/24/2016 Levaquin IVPB Discontinued: bag #1 completed. Total amount infused: 150 mL. IV patency established. IV site checked: no pain, redness, or swelling. IV flushed thoroughly. (Levaquin IVPB). --07:21 Vineet Buck R.NAnna 07:30 11/24/16. BP: 96/56. HR: 76 (regular). RR: 20. O2 saturation: 96% on nasal cannula at 4 liters/minute. Pain level now: 0/10. --08:37 Vineet Buck RAnnaNAnna 09:00 11/24/2016 Zofran (Ondansetron HCl) IVP 4 mg given over 2 minute(s) via site #3. Allergies verified and confirmed 5 rights. IV patency established. IV site checked: no pain, redness, or swelling. IV flushed thoroughly pre- and post-medication administration. IVP given by RN. --09:20 Vineet Buck R.N. 09:05 11/24/2016 Site #[address] upon admission; patent, no pain and no signs of infection or infiltration. Good blood return present. Flushed with 10 mL saline; flushes easily. --11:57 Vineet Buck R.N. 09:05 11/24/2016 Site #[address] upon admission; patent, no pain and no signs of infection or infiltration. Good blood return present. Flushed with 10 mL saline; flushes easily. --11:57 Vineet Buck R.N. 09:05 11/24/2016 Site #[address] upon admission; patent. Good blood return present. Flushed with 10 mL saline; flushes easily. --11:58 Vineet Buck R.N. DISPOSITION / DISCHARGE 08:38 11/24/16. BP: 106/76. HR: 78 (regular). RR: 22. O2 saturation: 95% on nasal cannula at 4 liters/minute. Temp: 98 F (oral). Pain level now: 2/10. Additional comments: 1st degree AV block. Slight c/o abdominal discomfort and nausea. --08:41 Vineet Buck R.N. Departure time: 904. --09:19 Vineet Buck R.N. 09:05. Admitted to the Critical Care Unit. Transported via stretcher by tech and nurse with monitor, IV and O2. Report was given. (MARY BETH Velasquez). Patient's personal items; items were placed in belongings bag and transported with the patient. --11:43 Vineet Buck R.N. Locked/Released at 11/24/2016 11:59 by Vineet Bukc R.N.
--- NOTE | 2016-11-24 06:46 | ED ORDER SUMMARY ---
..... Patient: MARY ACOSTA OrderSheet [facility] VisitID: [id number] [address] [place] [address] 71y, M Registration Date/Time: 11/24/2016 ORDER SHEET Weight: 120 kg (measured) Allergies: No Known Drug Allergy GENERAL ORDERS: Chest 1V Urgent (04:50 11/24/2016 Vielka Miller) (Ack 5:09 LMuller) (5:49 LMuller) [employer] (Continuous) (Respiratory Distress) (04:51 11/24/2016 Vielka Miller) (4:52 HSoule) Oxygen (titrate to sats > 90) (NC) (:51 11/24/2016 Vielka Miller) (4:52 HSoule) CT Abd/Pel w Cont (Yes) (N/A) Urgent (04:51 11/24/2016 Vielka Miller) (Ack 5:09 LMuller) (5:49 LMuller) CBC w Diff Urgent (04:52 11/24/2016 Vielka Miller) (5:10 LMuller) CMP Urgent (04:52 11/24/2016 Vielka Miller) (Ack 5:09 LMuller) (5:10 LMuller) UA-Culture if indicated Urgent (04:52 11/24/2016 Vielka Miller) (Ack 5:09 LMuller) (6:04 LMuller) PT with INR Urgent (04:52 11/24/2016 Vielka Miller) (Ack 5:09 LMuller) (5:10 LMuller) PTT Urgent (04:52 11/24/2016 Vielka Miller) (Ack 5:09 LMuller) (5:10 LMuller) Troponin-I Urgent (04:52 11/24/2016 Vielka Miller) (Ack 5:09 LMuller) (5:10 LMuller) D-Dimer Urgent (04:11/24/2016 Vielka Miller) (Ack 5:09 LMuller) (5:10 LMuller) BNP Urgent (04:11/24/2016 Vielka Miller) (Ack 5:09 LMuller) (5:09 LMuller) TSH Urgent (04:52 11/24/2016 Vielka Miller) (Ack 5:09 LMuller) (5:09 LMuller) Pulse oximeter (04:52 11/24/2016 Vielka Miller) (4:52 HSoule) Blood Culture (No) (N/A) Urgent (04:55 11/24/2016 Vielka Miller) (Ack 5:09 LMuller) (5:09 LMuller) Lactate, Serum Urgent (04:55 11/24/2016 Vielka Miller) (Ack 5:09 LMuller) (5:09 LMuller) Abdomen 1V Urgent (05:05 11/24/2016 Vielka Miller) (Ack 5:09 LMuller) (5:49 LMuller) ABG (G) Urgent (06:33 11/24/2016 Vielka Miller) (Ack 6:41 LMuller) (8:51 JRomanelli R.N.) PCT (Procalcitonin) Urgent (06:34 11/24/2016 Vielka Miller) (Ack 6:41 LMuller) (8:51 JRomanroz R.N.) - (cortisol) (06:35 11/24/2016 Vielka Miller) (Ack 6:41 LMuller) (8:51 JRomanelli R.N.) MEDICATION ORDERS: DuoNeb Neb Tx 1 unit dose (NOW) (04:51 11/24/2016 Vielka Miller) (4:53 HSoule) Potassium Chloride PO 60 meq (NOW) (05:43 11/24/2016 Vielka Miller) (Ack 5:43 HSoule) (5:50 HSoule) IV FLUIDS: IV NS : initial bolus 2L, then none - for X1 (NOW) (04:51 11/24/2016 Vielka Miller) (4:53 HSoule) Cefepime IV 2 gm/50mL (NOW) (05:41 11/24/2016 Vielka Miller) (Ack 5:43 HSoule) (6:04 HSoule) Levaquin IV 750 mg/150 mL (NOW) (05:42 11/24/2016 Vielka Miller) (Ack 5:43 HSoule) (5:49 HSoule) Fentanyl IV 50 mcg (HIGH ALERT MEDICATION, NOW) (06:06 11/24/2016 Vielka Miller) (6:09 HSoule) Solu-MEDROL IV 125 mg (NOW) (06:22 11/24/2016 Vielka Miller) (Ack 6:22 HSoule) (6:33 HSoule) Zofran IV 4 mg (NOW) (09:19 11/24/2016 Luis Covington verbal order read back to Vielka Miller) (9:20 Luis Covington) ORDER SHEET NOTES: [Electronically signed by Vineet Buck R.N. (11:59 11/24/2016)] [Electronically signed by Gilbert Escobar Dr. (21:23 11/24/2016)] [Electronically locked/signed by Vineet Buck R.N. (11:59 11/24/2016)]
--- NOTE | 2016-11-24 07:15 | DIAGNOSTIC IMAGING REPORT ---
PROCEDURE: XR CHEST 1 VIEW INDICATION: SOB TECHNIQUE: Single view chest. 05:09 hours COMPARISON: 09/25/2016 FINDINGS: The cardiopulmonary contour and central vasculature are stable, within normal limits. Pulmonary arteries mildly prominent. The lungs are mildly hyperinflated and hyperlucent in the upper lobes. Chronic bilateral lower lobe stranding but otherwise clear without focal consolidation, pleural effusion or pneumothorax. The osseous structures and demonstrate healed right lateral rib fractures. IMPRESSION: 1. No acute process. 2. Findings of COPD. 3. Chronic bibasilar atelectasis.
--- NOTE | 2016-11-24 07:19 | DIAGNOSTIC IMAGING REPORT ---
PROCEDURE: XR ABDOMEN 1 VIEW INDICATION: ABDOMINAL PAIN TECHNIQUE: Single view portable supine abdomen. COMPARISON: None. FINDINGS: Motion artifact on the film. No significant free intraperitoneal air on this single supine view. Paucity of small bowel gas. Normal amount of bowel gas in the colon. No unusual calcification. Severe degenerative changes in the left femoral acetabular joint and moderate degenerative changes in the lower lumbar spine. Multiple prostate seeds are present. Right hip arthroplasty. IMPRESSION: 1. Nonspecific, nonobstructive bowel gas pattern. 2. Severe left hip degeneration.
--- NOTE | 2016-11-24 07:39 | Progress Note ---
Subjective General Admission History and Physical Examination Patient Name: Torsten Dangelo Admission Date: November 24, 2016 Primary Care Provider: [facility] Attending Physician: Ridge Nunes MD Admitting Physician: Ridge Nunes M.D. Code Status: NO CODE Room: 303 Status: Inpatient, CCU SUBJECTIVE Historian: Patient Reliability: Poor Chief Complaint: Abdominal pain History of Present Illness: The patient is a 71-year-old white male with a significant past medical history of COPD, obesity, hypertension, diabetes mellitus, prostate cancer, osteoarthritis, carotid artery disease, who presented to [facility] emergency department on the day of admission secondary to complaints of abdominal pain. [facility] ER evaluation was consistent with diffuse abdominal pain of unclear etiology , hypertension, exacerbation of COPD. Secondary to the above, the patient was admitted by Ridge Nunes M.D. for further evaluation and treatment. A history of present illness began shortly before presentation when the patient developed epigastric abdominal discomfort. This was rather severe in degree. He denied recent history of hematemesis melena or hematochezia. He knew no aggravating or relieving factors. This was associated with shortness of breath. Secondary to the above the patient presented to [facility] emergency department for further evaluation and treatment. [facility] ER evaluation was consistent with hypotension of unclear etiology, abdominal discomfort with normal CT scan and unclear etiology. Secondary to the above the patient was admitted for further evaluation and treatment. PAST MEDICAL HISTORY Illnesses: 1. COPD 2. Hypertension 3. Diabetes mellitus 4. Prostate CA 5. Osteoarthritis 6. Obesity 7. Carotid artery disease Allergies: 1. No Known Drug Allergies Medications: 1. Duoneb 1 via neb q 6hours 2. Gabapentin 300mg po bid 3. Aspirin 35mg po daily 4. Coreg 25 mg po bid 5. Lipitor 40mg po dialy 6. Terazosin 5mg po daily 7. Vit D 2000 units po daily Surgery: 1. (R) EDGARDO 2. (R) CEA Injuries: 1. No significant Hospitalizations: 1. See above surgery and medical illnesses FAMILY HISTORY Parents: 1. Father, , 86, Bowel obstruction 2. Mother, , 86, "old age" Siblings: 1. Hx of alcohol abuse, Other significant family history: None SOCIAL HISTORY 1. Marital Status: 2. Mandaen: None 3. 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 Occupational health exposures: No significant HABITS 1. Tobacco: 1ppd 2. Drugs: None 3. Alcohol: 2-3 ounces per day HEALTH SUPERVISION Item/Test 1. not reviewed IMMUNIZATIONS: 1. Pneumococcal: Unknown 2. Influenza: Unknown 3. Tetanus: Unknown ADVANCED DIRECTIVES: 1. DNR/DNI-No Code REVIEW OF SYSTEMS Remarkable for those things stated in the history of present illness and past medical history. Seventeen point review of system completed with the following notable findings: General: Fatigue, weakness Eyes: Decreased visual acuity requiring corrective lenses Respiratory: Shortness of breath with exertion, wheezing Cardiovascular: Shortness of breath with exertion Gastrointestinal: Abdominal pain Genitourinary: Urinary hesitancy Physical Exam Vital Signs / I&Os Blood pressure: 96/52 mmHg Heart rate: 73/minute Respiratory rate: 18/minute Temperature: 98.1 Fahrenheit orally O2 saturation: 90% room air General Appearance Alert, Oriented X3, Cooperative, Mild distress HEENT Atraumatic, PERRLA, EOMI, Moist mucous membranes Lungs Decreased air movement bilaterally. Scattered rhonchi. No rales. Neck Supple, No JVD Cardiovascular Regular rate and rhythm, Normal S1 and S2, No murmurs, gallops, rubs Abdomen Normal bowel sounds, Soft, mild diffuse tenderness most significant epigastric region. No rebound Extremities No cyanosis, No clubbing Neurological Cranial nerves intact, Strength 5/5 x4 ext's, No lateralizing signs Psych/Mental Status Mental status normal, Mood normal LAB Results Laboratory Tests 11/24 11/24 11/24 11/24 0702 0633 0600 0500 Blood Gas Sample Site LR Total CO2 (24.0 - 30.0 mmol/L) 28.6 ABG pH (7.35 - 7.45) 7.38 ABG pCO2 at Pt Temp (35 - 45 mmHg) 46.3 ABG pO2 at Pt Temp (60.0 - 80.0 mmHg) 76.4 ABG HCO3 (20.0 - 26.0 mmol/L) 27.2 ABG O2 Sat Calc/Lissy (95.1 - 100.0 %) 95.0 ABG Base Excess (-6.0 - -6.0 mmol/L) 1.8 ABG Reduced Hgb (%) 4.8 ABG Carboxyhemoglobin (0.5 - 1.5 %) 4.3 ABG Methemoglobin (0.4 - 1.5 %) 0.2 Kai Test YES Other Total Hgb (14.0 - 18.0 g/dL) 10.0 A-a O2 Gradient (7.0 - 14.0 mmHg) 120.1 Hgb O2 Saturation (95.0 - 100.0 %) 90.7 Respiration Rate (/MIN) 15 O2 Liters/Min (0 - 20 L/MIN) 3.5 Vent Mode SB FiO2 (20 - 101 %) 35 Chemistry Lactic Acid (0.4 - 2.0 mmol/L) 1.5 B-Natriuretic Peptide (5 - 100 pg/ml) 217 Urines Urine Color YELLOW Urine Appearance CLEAR Urine pH (5.0 - 8.0) 6.0 Ur Specific [place] (1.010 - 1.030) <= 1.005 Urine Protein (NEGATIVE) 1+ Urine Ketones (NEGATIVE) TRACE Urine Blood (NEGATIVE) 1+ Urine Nitrite (NEGATIVE) NEGATIVE Urine Bilirubin (NEGATIVE) NEGATIVE Urine Urobilinogen (0.2 - 1.0 EU/dL) 0.2 Ur Leukocyte Esterase (NEGATIVE) NEGATIVE Urine RBC (0 - 1 rbc/hpf) RARE Urine WBC (0 - 1 wbc/hpf) 0-1 Ur Epithelial Cells (0 - 5 EPI/hpf) 0-1 Urine Bacteria (NONE SEEN) TRACE (<1+) Urine Glucose (NEGATIVE) TRACE Urine Comment CULT NOT INDICATED 11/24 11/24 11/24 4290 [id number] Chemistry Plasma Sodium (136 - 145 mmol/L) 126 Plasma Potassium (3.5 - 5.1 mmol/L) 2.6 Plasma Chloride (98 - 107 mmol/L) 84 CO2 (Enzymatic) (21 - 32 mmol/L) 28 BUN (7 - 18 mg/dL) 34 Creatinine (0.6 - 1.3 mg/dL) 2.5 Est GFR ( Amer) (mL/min) 33.05 Est GFR (Non-Af Amer) (mL/min) 27.27 Glucose (70 - 110 mg/dL) 117 Plasma Calcium (8.5 - 10.1 mg/dL) 7.9 Plasma Magnesium (1.8 - 2.4 mg/dL) 1.2 Total Bilirubin (0.0 - 1.0 mg/dL) 0.9 AST (15 - 37 U/L) 54 ALT (12 - 78 U/L) 42 Alkaline Phosphatase (46 - 116 U/L) 101 Troponin (0.00 - 1.5 ng/mL) <0.05 Total Protein (6.4 - 8.2 g/dL) 6.8 Albumin (3.3 - 5.0 g/dL) 3.2 Procalcitonin (0 - 0.5 ng/mL) <0.5 TSH 3rd Generation (0.30 - 3.74 uIU/mL) 1.175 Random Cortisol Pending Coagulation INR (0.8 - 1.2) 1.0 APTT (24 - 34 SECONDS) 29 D-Dimer, Quantitative (0.27 - 0.52 ug/mLFEU) 1.26 Hematology WBC (4.5 - 11.5 K/uL) 9.6 RBC (4.50 - 5.90 M/uL) 3.58 Hgb (13.5 - 17.5 gm/dL) 11.3 Hct (41.0 - 53.0 %) 33.8 MCV (80 - 100 fL) 95 MCH (26 - 34 pg) 32 RDW (11.6 - 14.8 %) 15.4 Neut % (Auto) (50 - 75 %) 76.5 Lymph % (Auto) (25 - 40 %) 12.5 [place] % (Auto) (3 - 14 %) 10.3 Eos % (Auto) (0 - 4 %) 0.5 Baso % (Auto) (0 - 2 %) 0.2 Plt Count, EDTA (150 - 400 K/uL) 229 PUBS MCHC (31 - 37 g/dL) 34 Microbiology Date/Time Procedure - Status Source Growth 11/24 0702 Blood Culture - RECD BLOOD 11/24 0500 Blood Culture - RECD BLOOD Imaging Chest X-Ray IMPRESSION: 1. No acute process. 2. Findings of COPD. 3. Chronic bibasilar atelectasis. Dictated by: PALOMA COLES MD D: LAQUITA;11/24/[address] Scan Abdomen/Pelvis IMPRESSION: 1. No acute process. 2. Descending and sigmoid colon diverticulosis. 3. Severe degeneration in the lumbar spine and left hip. 4. Preliminary report by Dr. Teetee Yao of [facility] radiology. Dictated by: PALOMA COLES MD D: LAQUITA;11/24/16 3189 Assessment and Plan Problem List 1. Abdominal pain Plan -Patient presents with abdominal pain -Improved since admit -CT scan abdomen/plevis unremarkable -No nausea/vomiting -WBC WNL, Procalcitonin WNL -Protonix 40mg IV daily -Monitor 2. Hypotension Plan -Resolved s/p IVF -Hold antihypertensives -monitor 3. Hyponatremia Plan -Mild -NS infusion -Check Cortisol/TSH -Monitor -Consider fluid restriction if persistent. 4. Hypokalemia Plan -Mild -IV supplement -PO supplement in am -Monitor 5. Hypomagnesemia Status Acute Onset Date Unknown Plan -Moderate, Mag 1.2 -IV/PO supplement -Monitor 6. COPD exacerbation Plan -Mild -Duoneb, albuterol, advair -O2 as needed Current status: Fair, unstable Anticipated discharge date: Anticipated discharge in 2 days Anticipated discharge placement: Home Patient care time: Time spent in chart review, patient interview, physical exam, CPOE, and care documentation: 70 minutes Visit to patient today: 2 Complexity of care: High E&M Codes [id number] Current status: Fair, unstable Anticipated discharge date: Anticipated discharge in 2 days Anticipated discharge placement: Home Patient care time: Time spent in chart review, patient interview, physical exam, CPOE, and care documentation: 70 minutes Visit to patient today: 2 Complexity of care: High E&M Codes Admission: [facility]/[id number]
--- NOTE | 2016-11-24 07:39 | Progress Note ---
Subjective General Admission History and Physical Examination Patient Name: Torsten Dangelo Admission Date: November 24, 2016 Primary Care Provider: [facility] Attending Physician: Ridge Nunes MD Admitting Physician: Ridge Nunes M.D. Code Status: NO CODE Room: 303 Status: Inpatient, CCU SUBJECTIVE Historian: Patient Reliability: Poor Chief Complaint: Abdominal pain History of Present Illness: The patient is a 71-year-old white male with a significant past medical history of COPD, obesity, hypertension, diabetes mellitus, prostate cancer, osteoarthritis, carotid artery disease, who presented to [facility] emergency department on the day of admission secondary to complaints of abdominal pain. [facility] ER evaluation was consistent with diffuse abdominal pain of unclear etiology , hypertension, exacerbation of COPD. Secondary to the above, the patient was admitted by Ridge Nunes M.D. for further evaluation and treatment. A history of present illness began shortly before presentation when the patient developed epigastric abdominal discomfort. This was rather severe in degree. He denied recent history of hematemesis melena or hematochezia. He knew no aggravating or relieving factors. This was associated with shortness of breath. Secondary to the above the patient presented to [facility] emergency department for further evaluation and treatment. [facility] ER evaluation was consistent with hypotension of unclear etiology, abdominal discomfort with normal CT scan and unclear etiology. Secondary to the above the patient was admitted for further evaluation and treatment. PAST MEDICAL HISTORY Illnesses: 1. COPD 2. Hypertension 3. Diabetes mellitus 4. Prostate CA 5. Osteoarthritis 6. Obesity 7. Carotid artery disease Allergies: 1. No Known Drug Allergies Medications: 1. Duoneb 1 via neb q 6hours 2. Gabapentin 300mg po bid 3. Aspirin 35mg po daily 4. Coreg 25 mg po bid 5. Lipitor 40mg po dialy 6. Terazosin 5mg po daily 7. Vit D 2000 units po daily Surgery: 1. (R) EDGARDO 2. (R) CEA Injuries: 1. No significant Hospitalizations: 1. See above surgery and medical illnesses FAMILY HISTORY Parents: 1. Father, , 86, Bowel obstruction 2. Mother, , 86, "old age" Siblings: 1. Hx of alcohol abuse, Other significant family history: None SOCIAL HISTORY 1. Marital Status: 2. Samaritan: None 3. 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 Occupational health exposures: No significant HABITS 1. Tobacco: 1ppd 2. Drugs: None 3. Alcohol: 2-3 ounces per day HEALTH SUPERVISION Item/Test 1. not reviewed IMMUNIZATIONS: 1. Pneumococcal: Unknown 2. Influenza: Unknown 3. Tetanus: Unknown ADVANCED DIRECTIVES: 1. DNR/DNI-No Code REVIEW OF SYSTEMS Remarkable for those things stated in the history of present illness and past medical history. Seventeen point review of system completed with the following notable findings: General: Fatigue, weakness Eyes: Decreased visual acuity requiring corrective lenses Respiratory: Shortness of breath with exertion, wheezing Cardiovascular: Shortness of breath with exertion Gastrointestinal: Abdominal pain Genitourinary: Urinary hesitancy Physical Exam Vital Signs / I&Os Blood pressure: 96/52 mmHg Heart rate: 73/minute Respiratory rate: 18/minute Temperature: 98.1 Fahrenheit orally O2 saturation: 90% room air General Appearance Alert, Oriented X3, Cooperative, Mild distress HEENT Atraumatic, PERRLA, EOMI, Moist mucous membranes Lungs Decreased air movement bilaterally. Scattered rhonchi. No rales. Neck Supple, No JVD Cardiovascular Regular rate and rhythm, Normal S1 and S2, No murmurs, gallops, rubs Abdomen Normal bowel sounds, Soft, mild diffuse tenderness most significant epigastric region. No rebound Extremities No cyanosis, No clubbing Neurological Cranial nerves intact, Strength 5/5 x4 ext's, No lateralizing signs Psych/Mental Status Mental status normal, Mood normal LAB Results Laboratory Tests 11/24 11/24 11/24 11/24 0702 0633 0600 0500 Blood Gas Sample Site LR Total CO2 (24.0 - 30.0 mmol/L) 28.6 ABG pH (7.35 - 7.45) 7.38 ABG pCO2 at Pt Temp (35 - 45 mmHg) 46.3 ABG pO2 at Pt Temp (60.0 - 80.0 mmHg) 76.4 ABG HCO3 (20.0 - 26.0 mmol/L) 27.2 ABG O2 Sat Calc/Lissy (95.1 - 100.0 %) 95.0 ABG Base Excess (-6.0 - -6.0 mmol/L) 1.8 ABG Reduced Hgb (%) 4.8 ABG Carboxyhemoglobin (0.5 - 1.5 %) 4.3 ABG Methemoglobin (0.4 - 1.5 %) 0.2 Kai Test YES Other Total Hgb (14.0 - 18.0 g/dL) 10.0 A-a O2 Gradient (7.0 - 14.0 mmHg) 120.1 Hgb O2 Saturation (95.0 - 100.0 %) 90.7 Respiration Rate (/MIN) 15 O2 Liters/Min (0 - 20 L/MIN) 3.5 Vent Mode SB FiO2 (20 - 101 %) 35 Chemistry Lactic Acid (0.4 - 2.0 mmol/L) 1.5 B-Natriuretic Peptide (5 - 100 pg/ml) 217 Urines Urine Color YELLOW Urine Appearance CLEAR Urine pH (5.0 - 8.0) 6.0 Ur Specific [place] (1.010 - 1.030) <= 1.005 Urine Protein (NEGATIVE) 1+ Urine Ketones (NEGATIVE) TRACE Urine Blood (NEGATIVE) 1+ Urine Nitrite (NEGATIVE) NEGATIVE Urine Bilirubin (NEGATIVE) NEGATIVE Urine Urobilinogen (0.2 - 1.0 EU/dL) 0.2 Ur Leukocyte Esterase (NEGATIVE) NEGATIVE Urine RBC (0 - 1 rbc/hpf) RARE Urine WBC (0 - 1 wbc/hpf) 0-1 Ur Epithelial Cells (0 - 5 EPI/hpf) 0-1 Urine Bacteria (NONE SEEN) TRACE (<1+) Urine Glucose (NEGATIVE) TRACE Urine Comment CULT NOT INDICATED 11/24 11/24 11/24 2440 1261 2270 Chemistry Plasma Sodium (136 - 145 mmol/L) 126 Plasma Potassium (3.5 - 5.1 mmol/L) 2.6 Plasma Chloride (98 - 107 mmol/L) 84 CO2 (Enzymatic) (21 - 32 mmol/L) 28 BUN (7 - 18 mg/dL) 34 Creatinine (0.6 - 1.3 mg/dL) 2.5 Est GFR ( Amer) (mL/min) 33.05 Est GFR (Non-Af Amer) (mL/min) 27.27 Glucose (70 - 110 mg/dL) 117 Plasma Calcium (8.5 - 10.1 mg/dL) 7.9 Plasma Magnesium (1.8 - 2.4 mg/dL) 1.2 Total Bilirubin (0.0 - 1.0 mg/dL) 0.9 AST (15 - 37 U/L) 54 ALT (12 - 78 U/L) 42 Alkaline Phosphatase (46 - 116 U/L) 101 Troponin (0.00 - 1.5 ng/mL) <0.05 Total Protein (6.4 - 8.2 g/dL) 6.8 Albumin (3.3 - 5.0 g/dL) 3.2 Procalcitonin (0 - 0.5 ng/mL) <0.5 TSH 3rd Generation (0.30 - 3.74 uIU/mL) 1.175 Random Cortisol Pending Coagulation INR (0.8 - 1.2) 1.0 APTT (24 - 34 SECONDS) 29 D-Dimer, Quantitative (0.27 - 0.52 ug/mLFEU) 1.26 Hematology WBC (4.5 - 11.5 K/uL) 9.6 RBC (4.50 - 5.90 M/uL) 3.58 Hgb (13.5 - 17.5 gm/dL) 11.3 Hct (41.0 - 53.0 %) 33.8 MCV (80 - 100 fL) 95 MCH (26 - 34 pg) 32 RDW (11.6 - 14.8 %) 15.4 Neut % (Auto) (50 - 75 %) 76.5 Lymph % (Auto) (25 - 40 %) 12.5 [place] % (Auto) (3 - 14 %) 10.3 Eos % (Auto) (0 - 4 %) 0.5 Baso % (Auto) (0 - 2 %) 0.2 Plt Count, EDTA (150 - 400 K/uL) 229 PUBS MCHC (31 - 37 g/dL) 34 Microbiology Date/Time Procedure - Status Source Growth 11/24 0702 Blood Culture - RECD BLOOD 11/24 0500 Blood Culture - RECD BLOOD Imaging Chest X-Ray IMPRESSION: 1. No acute process. 2. Findings of COPD. 3. Chronic bibasilar atelectasis. Dictated by: PALOMA COLES MD D: LAQUITA;11/24/[address] Scan Abdomen/Pelvis IMPRESSION: 1. No acute process. 2. Descending and sigmoid colon diverticulosis. 3. Severe degeneration in the lumbar spine and left hip. 4. Preliminary report by Dr. Teetee Yao of [facility] radiology. Dictated by: PALOMA COLES MD D: LAQUITA;11/24/16 4872 Assessment and Plan Problem List 1. Abdominal pain Plan -Patient presents with abdominal pain -Improved since admit -CT scan abdomen/plevis unremarkable -No nausea/vomiting -WBC WNL, Procalcitonin WNL -Protonix 40mg IV daily -Monitor 2. Hypotension Plan -Resolved s/p IVF -Hold antihypertensives -monitor 3. Hyponatremia Plan -Mild -NS infusion -Check Cortisol/TSH -Monitor -Consider fluid restriction if persistent. 4. Hypokalemia Plan -Mild -IV supplement -PO supplement in am -Monitor 5. Hypomagnesemia Status Acute Onset Date Unknown Plan -Moderate, Mag 1.2 -IV/PO supplement -Monitor 6. COPD exacerbation Plan -Mild -Duoneb, albuterol, advair -O2 as needed Current status: Fair, unstable Anticipated discharge date: Anticipated discharge in 2 days Anticipated discharge placement: Home Patient care time: Time spent in chart review, patient interview, physical exam, CPOE, and care documentation: 70 minutes Visit to patient today: 2 Complexity of care: High E&M Codes [id number] Current status: Fair, unstable Anticipated discharge date: Anticipated discharge in 2 days Anticipated discharge placement: Home Patient care time: Time spent in chart review, patient interview, physical exam, CPOE, and care documentation: 70 minutes Visit to patient today: 2 Complexity of care: High E&M Codes Admission: [facility]/[id number]
--- NOTE | 2016-11-24 08:52 | DIAGNOSTIC IMAGING REPORT ---
PROCEDURE: ABDOMEN/PELVIS WITH CONTRAST CLINICAL INDICATION: ABDOMINAL PAIN TECHNIQUE: 140 ml of Isovue 300 were injected intravenously and axial images were obtained of the abdomen and pelvis with sagittal and coronal reformations. COMPARISON: None. FINDINGS: ABDOMEN: Mild bibasilar atelectasis. Normal sized heart. No hiatal hernia. Mildly lobulated liver margin, caudate lobe hypertrophy and right lobe atrophy. Mild hepatic hypodensity. 2.1 cm low density right adrenal nodule. Exophytic and cortically based cysts arising from the midpole of the left kidney. Mild calcific aortic atherosclerosis and mild right common iliac artery ectasia. Small fat containing supraumbilical hernia with a wide neck. Mild descending colonic diverticulosis and moderate to severe sigmoid colon diverticulosis without acute inflammation. The gallbladder, left adrenal gland, right kidney, pancreas and spleen are normal. The abdominal aorta is normal in its course and caliber. There are no suspicious calcifications, retroperitoneal adenopathy or masses. The stomach, upper bowel loops, and mesentery are normal. No free fluid or inflammation. PELVIS: The appendix and pelvic small bowel loops are normal. Normal amount of stool in the colon and rectum. Multiple tiny seeds are present throughout the prostate gland. There is beam hardening artifact of the pelvis from right hip arthroplasty. The seminal vesicles, urinary bladder, and pelvic vessels are normal. No adenopathy, free fluid, or pelvic mass. There are severe significant degenerative changes involving the left femoral acetabular joint. Severe degenerative disc and endplate changes through the lower lumbar spine. There is moderate to severe bony spinal stenosis of the lumbar spine at the L3-4 and L4-5 level. IMPRESSION: 1. No acute process. 2. Descending and sigmoid colon diverticulosis. 3. Severe degeneration in the lumbar spine and left hip. 4. Preliminary report by Dr. Teetee Yao of [facility] radiology. All CT scans at this facility use dose modulation, iterative reconstruction, and/or weight-based dosing when appropriate to reduce radiation dose to as low as reasonably achievable.
--- NOTE | 2016-11-24 18:38 | NUR ---
Pt has been sleeping on and off all day, mild lower bilat quad pain , but has not requested pain medication. pt has had a loose productive cough of white yellow sputum. oob to a chair this evening and tolerated a clear liquid diet. pt has received mag rider and two potassium riders. Pt states he drinks 2 to 4 whisky and pond every day.
--- NOTE | 2016-11-24 21:23 | ED MED RECONCILIATION SUMMARY ---
Patient: MARY ACOSTA Medication Reconciliation Report [facility] VisitID: [id number] [address] [place] [address] 71y, M Registration Date/Time: 11/24/2016 Weight: 120 kg Height/Length: 71 in. BMI: 36.9 ALLERGIES: No Known Drug Allergy The patient's Home Medications are listed below: THE FOLLOWING MEDICATIONS NEED TO BE RECONCILED: Albuterol Sulfate Inhalation ASA Oral Carvedilol Phosphate ER Oral Lisinopril Oral The source(s) of the original Home Medication information: EMS The following Medications were given to the patient in the Emergency Department: IV NS IV Fluids bolus 0, then 1000 mL/hr, administered: 11/24/2016 4:53:00 AM Duoneb [Neb Tx] Neb TX 1 unit dose, administered: 11/24/2016 4:43:00 AM IV NS IV Fluids bolus 0, then 1000 mL/hr, administered: 11/24/2016 4:50:00 AM Levaquin [IVPB] IVPB bolus 0, then 750 mg 100 mL/hr, administered: 11/24/2016 5:49:00 AM Potassium Chloride [PO] PO 60 meq, administered: 11/24/2016 5:50:00 AM Cefepime [IVPB] IVPB bolus 0, then 2 gm 140 mL/hr, administered: 11/24/2016 5:59:00 AM Fentanyl [IVP] IVP 50 mcg, administered: 11/24/2016 6:09:00 AM SOLU-MEDROL [IVP] IVP 125 mg, administered: 11/24/2016 6:28:00 AM Zofran [IVP] IVP 4 mg, administered: 11/24/2016 9:00:00 AM The following Medications were prescribed to the patient: None.
--- NOTE | 2016-11-24 21:23 | ED MAR SUMMARY ---
..... Medication Administration Record [facility] [address] [place] [address] Patient: MARY ACOSTA Visit ID: [id number] 71y, M Weight: 120.0 kg Height/Length: 71 in BMI: 36.9 ALLERGIES: No Known Drug Allergy Given 04:43 11/24/2016 Rosalee Wilks, Medication Administered: DUONEB [NEB TX] (IPRATROPIUM-ALBUTEROL), Dose: 1 unit dose Nebulizer Neb TX. Medication Ordered: DuoNeb Neb Tx 1 unit dose (NOW). Start 04:50 11/24/2016 Rosalee Wilks,, Stop 05:35 11/24/2016 Rosalee Wilks, Medication Administered: IV NS (SALINE), Dose: IV Fluids over 1 hour(s), Rate: 1000 mL/hr, Dispensed: 1000 mL bag, Site: #2. Medication Ordered: IV NS : initial bolus 2L, then none - for X1 (NOW). Start 04:53 11/24/2016 Rosalee Wilks,, Stop 05:45 11/24/2016 Rosalee Wilks, Medication Administered: IV NS (SALINE), Dose: IV Fluids over 1 hour(s), Rate: 1000 mL/hr, Dispensed: 1000 mL bag, Site: #1 left wrist. Medication Ordered: IV NS : initial bolus 2L, then none - for X1 (NOW). Start 05:49 11/24/2016 Rosalee Wilks,, Stop 07:21 11/24/2016 Vineet Buck, R.N. Medication Administered: LEVAQUIN [IVPB] (LEVOFLOXACIN), Dose: 750 mg IVPB over 1.5 hour(s), Rate: 100 mL/hr, Dispensed: 150 mL bag, Site: #3 right AC. Medication Ordered: Levaquin IV 750 mg/150 mL (NOW). Given 05:50 11/24/2016 Rosalee Wilks, Medication Administered: POTASSIUM CHLORIDE [PO] (POTASSIUM CHLORIDE ER), Dose: 60 meq Tablets PO. Medication Ordered: Potassium Chloride PO 60 meq (NOW). Start 05:59 11/24/2016 Rosalee Wilks,, Stop 06:20 11/24/2016 Vineet Buck RAnnaN. Medication Administered: CEFEPIME [IVPB], Dose: 2 gm IVPB over 10 minute(s), Rate: 140 mL/hr, Dispensed: 50 mL bag, Site: #1 left wrist. Medication Ordered: Cefepime IV 2 gm/50mL (NOW). Given 06:09 11/24/2016 Rosalee Wilks, Medication Administered: FENTANYL [IVP], Dose: 50 mcg IVP over 1 minute(s), Site: #2 right hand. Medication Ordered: Fentanyl IV 50 mcg (HIGH ALERT MEDICATION, NOW). Given 06:28 11/24/2016 Rosalee Wilks, Medication Administered: SOLU-MEDROL [IVP] (METHYLPREDNISOLONE SODIUM SUCC), Dose: 125 mg IVP over 2 minute(s), Site: #2 right hand. Medication Ordered: Solu-MEDROL IV 125 mg (NOW). Given 09:00 11/24/2016 Vineet Buck, RAnnaN. Medication Administered: ZOFRAN [IVP] (ONDANSETRON HCL), Dose: 4 mg IVP over 2 minute(s), Site: #3 right AC. Medication Ordered: Zofran IV 4 mg (NOW).
--- NOTE | 2016-11-24 21:23 | ED DISCHARGE INSTRUCTIONS ---
Patient: MARY ACOSTA General Instructions [facility] VisitID: [id number] [address] [place] [address] 71y, M Registration Date/Time: 11/24/2016 hypotension, severe hyponatremia hypokalemia COPD exacerbation lower abdominal pain. (Electronically signed by Gilbert Escobar Dr. 11/24/2016 21:23)
--- NOTE | 2016-11-24 21:23 | ED MAR SUMMARY ---
..... Medication Administration Record [facility] [address] [place] [address] Patient: MARY ACOSTA Visit ID: [id number] 71y, M Weight: 120.0 kg Height/Length: 71 in BMI: 36.9 ALLERGIES: No Known Drug Allergy Given 04:43 11/24/2016 Rosalee Wilks, Medication Administered: DUONEB [NEB TX] (IPRATROPIUM-ALBUTEROL), Dose: 1 unit dose Nebulizer Neb TX. Medication Ordered: DuoNeb Neb Tx 1 unit dose (NOW). Start 04:50 11/24/2016 Rosalee Wilks,, Stop 05:35 11/24/2016 Rosalee Wilks, Medication Administered: IV NS (SALINE), Dose: IV Fluids over 1 hour(s), Rate: 1000 mL/hr, Dispensed: 1000 mL bag, Site: #2. Medication Ordered: IV NS : initial bolus 2L, then none - for X1 (NOW). Start 04:53 11/24/2016 Rosalee Wilks,, Stop 05:45 11/24/2016 Rosalee Wilks, Medication Administered: IV NS (SALINE), Dose: IV Fluids over 1 hour(s), Rate: 1000 mL/hr, Dispensed: 1000 mL bag, Site: #1 left wrist. Medication Ordered: IV NS : initial bolus 2L, then none - for X1 (NOW). Start 05:49 11/24/2016 Rosalee Wilks,, Stop 07:21 11/24/2016 Vineet Buck, R.N. Medication Administered: LEVAQUIN [IVPB] (LEVOFLOXACIN), Dose: 750 mg IVPB over 1.5 hour(s), Rate: 100 mL/hr, Dispensed: 150 mL bag, Site: #3 right AC. Medication Ordered: Levaquin IV 750 mg/150 mL (NOW). Given 05:50 11/24/2016 Rosalee Wilks, Medication Administered: POTASSIUM CHLORIDE [PO] (POTASSIUM CHLORIDE ER), Dose: 60 meq Tablets PO. Medication Ordered: Potassium Chloride PO 60 meq (NOW). Start 05:59 11/24/2016 Rosalee Wilks,, Stop 06:20 11/24/2016 Vineet Buck RAnnaN. Medication Administered: CEFEPIME [IVPB], Dose: 2 gm IVPB over 10 minute(s), Rate: 140 mL/hr, Dispensed: 50 mL bag, Site: #1 left wrist. Medication Ordered: Cefepime IV 2 gm/50mL (NOW). Given 06:09 11/24/2016 Rosalee Wilks, Medication Administered: FENTANYL [IVP], Dose: 50 mcg IVP over 1 minute(s), Site: #2 right hand. Medication Ordered: Fentanyl IV 50 mcg (HIGH ALERT MEDICATION, NOW). Given 06:28 11/24/2016 Rosalee Wilks, Medication Administered: SOLU-MEDROL [IVP] (METHYLPREDNISOLONE SODIUM SUCC), Dose: 125 mg IVP over 2 minute(s), Site: #2 right hand. Medication Ordered: Solu-MEDROL IV 125 mg (NOW). Given 09:00 11/24/2016 Vineet Buck, RAnnaN. Medication Administered: ZOFRAN [IVP] (ONDANSETRON HCL), Dose: 4 mg IVP over 2 minute(s), Site: #3 right AC. Medication Ordered: Zofran IV 4 mg (NOW).
--- NOTE | 2016-11-24 21:23 | ED DISCHARGE INSTRUCTIONS ---
Patient: MARY ACOSTA General Instructions [facility] VisitID: [id number] [address] [place] [address] 71y, M Registration Date/Time: 11/24/2016 hypotension, severe hyponatremia hypokalemia COPD exacerbation lower abdominal pain. (Electronically signed by Gilbert Escobar Dr. 11/24/2016 21:23)
--- NOTE | 2016-11-24 21:23 | ED MED RECONCILIATION SUMMARY ---
Patient: MARY ACOSTA Medication Reconciliation Report [facility] VisitID: [id number] [address] [place] [address] 71y, M Registration Date/Time: 11/24/2016 Weight: 120 kg Height/Length: 71 in. BMI: 36.9 ALLERGIES: No Known Drug Allergy The patient's Home Medications are listed below: THE FOLLOWING MEDICATIONS NEED TO BE RECONCILED: Albuterol Sulfate Inhalation ASA Oral Carvedilol Phosphate ER Oral Lisinopril Oral The source(s) of the original Home Medication information: EMS The following Medications were given to the patient in the Emergency Department: IV NS IV Fluids bolus 0, then 1000 mL/hr, administered: 11/24/2016 4:53:00 AM Duoneb [Neb Tx] Neb TX 1 unit dose, administered: 11/24/2016 4:43:00 AM IV NS IV Fluids bolus 0, then 1000 mL/hr, administered: 11/24/2016 4:50:00 AM Levaquin [IVPB] IVPB bolus 0, then 750 mg 100 mL/hr, administered: 11/24/2016 5:49:00 AM Potassium Chloride [PO] PO 60 meq, administered: 11/24/2016 5:50:00 AM Cefepime [IVPB] IVPB bolus 0, then 2 gm 140 mL/hr, administered: 11/24/2016 5:59:00 AM Fentanyl [IVP] IVP 50 mcg, administered: 11/24/2016 6:09:00 AM SOLU-MEDROL [IVP] IVP 125 mg, administered: 11/24/2016 6:28:00 AM Zofran [IVP] IVP 4 mg, administered: 11/24/2016 9:00:00 AM The following Medications were prescribed to the patient: None.
[2016-11-25] VITALS (28 sets, daily range): BP systolic 80–125; BP diastolic 37–94
--- NOTE | 2016-11-25 03:08 | NUR ---
A/Ox3, no pain issues, independent for bed mobility, SBP 90-teens, SR pvc's, HF=312, continue to monitor, uses call light.
--- NOTE | 2016-11-25 06:21 | Progress Note ---
Subjective General Note Date: November 25, 2016 Admission Date: November 24, 2016 Hospital Day: 2 PCP: [facility] Status: Inpatient, CCU Advanced Directive: NO CODE Room: 303 Brief History: The patient is a 71-year-old white male with a significant past medical history of COPD, obesity, hypertension, diabetes mellitus, prostate cancer, osteoarthritis, carotid artery disease, who presented to [facility] emergency department on the day of admission secondary to complaints of abdominal pain. [facility] ER evaluation was consistent with diffuse abdominal pain of unclear etiology , hypertension, exacerbation of COPD. Secondary to the above, the patient was admitted by Ridge Nunes M.D. for further evaluation and treatment. For other history present illness, past medical history, family history, social history, review of systems, and admission physical examination please see the patient's history and physical examination and ER visit note in the patient's medical record. Subjective: The patient states he is doing well. No abdominal pain today. No lightheadedness. Shortness of breath stable. Patient requests: None Medications and Allergies Medications Current Medications Sig/Nya Start time Last Medication Dose Route Stop Time Status Admin Aspirin 325 MG DAILY 11/25 0900 AC PO Magnesium Chloride 535 MG TID 11/24 2200 AC 11/25 PO 0501 Gabapentin 300 MG BID 11/24 2100 AC 11/24 PO 2148 Insulin Human Lispro See Dose ACHS 11/24 2100 AC Insts (1) SC Atorvastatin Calcium 40 MG QPM 11/24 1800 AC 11/24 PO 1926 Magnesium Sulfate 2 GM NOW STA 11/24 1200 CAN IV 11/24 1201 Albuterol/Ipratropium 3 ML RTQ6H 11/24 0800 AC 11/25 IN 0134 Acetaminophen 650 MG Q4H PRN 11/24 0730 AC HI Al Hydrox/Mg Hydrox/ 15 ML Q1H PRN 11/24 0730 AC Simethicone PO Albuterol Sulfate 2.5 MG Q3H PRN 11/24 0730 AC IN Atropine Sulfate 0.5 MG Q3MIN PRN 11/24 0730 AC IV Hydromorphone HCl 1 MG Q6H PRN 11/24 0730 AC IV Lidocaine HCl See Dose ONCE PRN 11/24 0730 AC Insts (2) IV Lorazepam 0.5 MG Q2H PRN 11/24 0730 AC IV Magnesium Hydroxide 10 ML DAILY PRN 11/24 0730 AC PO Morphine Sulfate 2 MG Q3M PRN 11/24 0630 AC IV Nitroglycerin 0.4 MG Q5M PRN 11/24 0730 AC SL Ondansetron HCl 4 MG Q6H PRN 11/24 729 AC IV Pantoprazole Sodium 40 MG DAILY@0600 11/24 0730 AC 11/25 IV 0501 Sodium Chloride 1,000 ML ASDIRECTED 11/24 729 AC 11/25 IV 0132 Dose Instructions: (1)Insulin Human Lispro: LOW DOSE SLIDING SCALE (2)Lidocaine HCl: 1.5 MG/KG Allergies Coded Allergies: No Known Drug Allergy (02/22/08) Physical Exam Vital Signs / I&Os Vital Signs Date Time Temp Pulse Resp B/P Pulse O2 O2 Flow FiO2 Ox Delivery Rate 11/25 0522 75 15 125/77 94 Nasal 3.5 Cannula 11/25 0428 98.1 73 17 107/42 96 Nasal 3.5 Cannula 11/25 0321 78 14 105/40 97 Nasal 3.5 Cannula 11/25 0217 70 13 96/50 96 Nasal 3.5 Cannula 11/25 0136 3.5 11/25 0125 77 18 107/50 98 Nasal 3.5 Cannula 11/25 0019 78 111/45 95 Nasal 3.5 Cannula 11/24 2320 98.8 73 13 117/49 98 Nasal 3.5 Cannula 11/24 2228 77 23 132/40 99 Nasal 3.5 Cannula 11/24 2130 74 18 136/65 98 Nasal 3.5 Cannula 11/24 2025 Nasal 3.5 Cannula 11/24 2019 74 16 124/73 99 Nasal 4.0 Cannula 11/24 1921 4.0 11/24 1916 97.9 68 17 116/54 96 Nasal 4.0 Cannula / 1800 65 16 108/48 95 Nasal 4.0 Cannula / 1710 79 16 94/51 95 Nasal 5.0 Cannula 11/24 1610 80 20 112/66 97 Nasal 4.0 Cannula 11/24 1530 4.0 11/24 1523 76 16 103/40 97 Nasal 4.0 Cannula 11/24 1417 77 16 91/40 97 Nasal 4.0 Cannula 11/24 1317 97.9 79 19 105/57 98 Nasal 4.0 Cannula 11/24 1201 80 17 95/46 93 Nasal 4.0 Cannula 11/24 1112 74 15 94/37 95 Nasal 4.0 Cannula 11/24 1015 77 14 89/36 95 Nasal 4.0 Cannula 11/24 0930 4.0 11/24 0918 98.6 90 17 100/39 94 Nasal 4.0 Cannula 11/24 0702 3.5 I&O 11/25 0000 11/24 1600 11/24 0800 Intake Total 1918 0 Output Total 2150 2875 Balance -232 -2875 General Appearance Alert, Oriented X3, Cooperative, No acute distress Lungs Scattered rhonchi, minimal expiratory wheezes Cardiovascular Regular rate and rhythm, Normal S1 and S2 Abdomen Normal bowel sounds, Soft, No tenderness Extremities No cyanosis, No clubbing Neurological Cranial nerves intact, No lateralizing signs Psych/Mental Status Mental status normal, Mood normal LAB Results Laboratory Tests 11/25 11/24 11/24 11/24 0400 0800 0702 0633 Blood Gas Sample Site LR Total CO2 (24.0 - 30.0 mmol/L) 28.6 ABG pH (7.35 - 7.45) 7.38 ABG pCO2 at Pt Temp (35 - 45 mmHg) 46.3 ABG pO2 at Pt Temp (60.0 - 80.0 mmHg) 76.4 ABG HCO3 (20.0 - 26.0 mmol/L) 27.2 ABG O2 Sat Calc/Lissy (95.1 - 100.0 %) 95.0 ABG Base Excess (-6.0 - -6.0 mmol/L) 1.8 ABG Reduced Hgb (%) 4.8 ABG Carboxyhemoglobin (0.5 - 1.5 %) 4.3 ABG Methemoglobin (0.4 - 1.5 %) 0.2 Kai Test YES Other Total Hgb (14.0 - 18.0 g/dL) 10.0 A-a O2 Gradient (7.0 - 14.0 mmHg) 120.1 Hgb O2 Saturation (95.0 - 100.0 %) 90.7 Respiration Rate (/MIN) 15 O2 Liters/Min (0 - 20 L/MIN) 3.5 Vent Mode SB FiO2 (20 - 101 %) 35 Chemistry Plasma Sodium (136 - 145 mmol/L) 140 125 Plasma Potassium (3.5 - 5.1 mmol/L) 3.3 3.1 Plasma Chloride (98 - 107 mmol/L) 99 86 CO2 (Enzymatic) (21 - 32 mmol/L) 28 27 BUN (7 - 18 mg/dL) 23 32 Creatinine (0.6 - 1.3 mg/dL) 1.4 2.3 Est GFR ( Amer) (mL/min) >60 36.39 Est GFR (Non-Af Amer) (mL/min) 53.25 30.03 Glucose (70 - 110 mg/dL) 122 106 Lactic Acid (0.4 - 2.0 mmol/L) 1.5 Plasma Calcium (8.5 - 10.1 mg/dL) 7.6 7.3 Amylase (25 - 115 U/L) 24 Lipase (73 - 393 U/L) 91 Hematology WBC (4.5 - 11.5 K/uL) 11.6 8.5 RBC (4.50 - 5.90 M/uL) 3.28 3.41 Hgb (13.5 - 17.5 gm/dL) 10.3 10.7 Hct (41.0 - 53.0 %) 31.1 31.9 MCV (80 - 100 fL) 95 94 MCH (26 - 34 pg) 31 31 RDW (11.6 - 14.8 %) 16.1 15.7 Neut % (Auto) (50 - 75 %) Pending 89.2 Lymph % (Auto) (25 - 40 %) Pending 5.5 [place] % (Auto) (3 - 14 %) Pending 5.1 Eos % (Auto) (0 - 4 %) 0.2 Baso % (Auto) (0 - 2 %) 0 Band Neutrophils % (0 - 8 %) Pending Plt Count, EDTA (150 - 400 K/uL) 206 195 PUBS MCHC (31 - 37 g/dL) 33 33 Microbiology Date/Time Procedure - Status Source Growth 11/24 1236 MRSA Screen - RECD NASAL 11/24 0702 Blood Culture - RECD BLOOD Assessment and Plan Problem List 1. Hypotension Plan -Patient with persistent mild hypotension -Asymptomatic -No orthostatic changes noted -Continue to hold antihypertensive medications -Monitor 2. Abdominal pain Plan -Resolved -Continue Protonix -Monitor Consider upper endoscopy on an outpatient basis with persistent symptoms 3. Hypokalemia Plan -Improved -KCl 20 mEq by mouth daily -Monitor 4. COPD exacerbation Plan -Stable -Continue present therapy 5. Hypomagnesemia Status Acute Onset Date Unknown Plan -Improved -Continue Slow-Mag one by mouth 3 times a day -Recheck in a.m. 6. Anemia Status Acute Onset Date Unknown Plan -Stable -H&H 10.3/31.1 -Check serum iron profile, B12, folate in a.m. -Monitor 7. Hyponatremia Plan -Resolved Current status: Fair, improved Anticipated discharge date: Anticipated discharge in a.m. Anticipated discharge placement: Home Patient care time: Time spent in chart review, patient interview, physical exam, CPOE, and care documentation: 25 minutes Visit to patient today: 1 Complexity of care: Moderate E&M Codes Rounding: Inpt-Moderate/[id number]
--- NOTE | 2016-11-25 15:01 | NUR ---
PT IS DOING BETTER, CO MILD ABDIMINAL PAIN NOT REQUIRING PAIN MEDCATIONS. BP CONTINUES TO BE AN ISSUE WITH LABILE BP FROM 75/46 UP TO 120'S WITH BEING SYMPTOMATIC AT TIMES. RESTING QUIETLY AT TIMES
[2016-11-26] VITALS (11 sets, daily range): BP systolic 105–127; BP diastolic 52–69
--- NOTE | 2016-11-26 01:23 | NUR ---
Pt A/Ox3, denies abdominal pain, having loose stools, VSS, had O2 off while blowing nose and sats dropped to 85%, but otherwise asymptomatic.
--- NOTE | 2016-11-26 08:16 | Progress Note ---
Subjective General Note Date: November 26, 2016 Admission Date: November 24, 2016 Hospital Day: 3 PCP: [facility] Status: Inpatient, CCU Advanced Directive: NO CODE Room: 303 Brief History: The patient is a 71-year-old white male with a significant past medical history of COPD, obesity, hypertension, diabetes mellitus, prostate cancer, osteoarthritis, carotid artery disease, who presented to [facility] emergency department on the day of admission secondary to complaints of abdominal pain. [facility] ER evaluation was consistent with diffuse abdominal pain of unclear etiology , hypertension, exacerbation of COPD. Secondary to the above, the patient was admitted by Ridge Nunes M.D. for further evaluation and treatment. For other history present illness, past medical history, family history, social history, review of systems, and admission physical examination please see the patient's history and physical examination and ER visit note in the patient's medical record. Subjective: Patient states he is doing well. No lightheadedness. No significant shortness of breath ready for discharge Patient requests: None Medications and Allergies Medications Current Medications Sig/Nya Start time Last Medication Dose Route Stop Time Status Admin Potassium Chloride 20 MEQ DAILY 11/25 1700 AC 11/25 PO 1740 Aspirin 325 MG DAILY 11/25 0900 AC 11/25 PO 1038 Magnesium Chloride 535 MG TID 11/24 2200 AC 11/26 PO 0543 Gabapentin 300 MG BID 11/24 2100 AC 11/25 PO 2136 Insulin Human Lispro See Dose ACHS 11/24 2100 AC Insts (1) SC Atorvastatin Calcium 40 MG QPM 11/24 1800 AC 11/25 PO 1740 Albuterol/Ipratropium 3 ML RTQ6H 11/24 0800 AC 11/26 IN 0801 Acetaminophen 650 MG Q4H PRN 11/24 0730 AC OR Al Hydrox/Mg Hydrox/ 15 ML Q1H PRN 11/24 0730 AC Simethicone PO Albuterol Sulfate 2.5 MG Q3H PRN 11/24 0630 AC IN Atropine Sulfate 0.5 MG Q3MIN PRN 11/24 0630 AC IV Hydromorphone HCl 1 MG Q6H PRN 11/24 0630 AC IV Lidocaine HCl See Dose ONCE PRN 11/24 0730 AC Insts (2) IV Lorazepam 0.5 MG Q2H PRN 11/24 0630 AC IV Magnesium Hydroxide 10 ML DAILY PRN 05/12 0730 AC PO Morphine Sulfate 2 MG Q3M PRN 11/24 729 AC IV Nitroglycerin 0.4 MG Q5M PRN 11/24 0630 AC SL Ondansetron HCl 4 MG Q6H PRN 11/24 729 AC IV Pantoprazole Sodium 40 MG DAILY@0600 11/24 0730 AC 11/26 IV 0543 Sodium Chloride 1,000 ML ASDIRECTED 11/24 729 AC 11/25 IV 1040 Dose Instructions: (1)Insulin Human Lispro: LOW DOSE SLIDING SCALE (2)Lidocaine HCl: 1.5 MG/KG Allergies Coded Allergies: No Known Drug Allergy (02/22/08) Physical Exam Vital Signs / I&Os Vital Signs Date Time Temp Pulse Resp B/P Pulse O2 O2 Flow FiO2 Ox Delivery Rate 11/26 0719 70 19 122/63 95 Nasal 2.0 Cannula 11/26 0617 98.1 70 16 122/58 96 Nasal 2.0 Cannula 11/26 0521 72 16 115/65 99 Nasal 2.0 Cannula 11/26 0424 63 18 122/63 100 Nasal 2.0 Cannula 11/26 0334 80 18 114/66 92 Nasal 2.0 Cannula 11/26 0217 57 16 105/65 97 Nasal 2.0 Cannula 11/26 0118 2.0 11/26 0115 98.1 72 18 105/52 100 Nasal 2.0 Cannula 11/26 0017 66 18 127/55 100 Nasal 2.0 Cannula 11/25 2319 97.7 72 20 103/47 94 Nasal 2.0 Cannula 11/25 2217 62 17 103/67 97 Nasal 2.0 Cannula 11/25 2134 60 17 96/55 100 Nasal 2.0 Cannula 11/25 2033 63 18 96/50 98 Nasal 2.0 Cannula 11/25 1925 68 18 116/94 96 Nasal 2.0 Cannula 11/25 1901 2.0 11/25 1849 97.5 91 18 109/64 97 Nasal 2.0 Cannula 11/25 1729 76 15 125/52 95 Room Air 11/25 1623 70 16 117/70 96 Room Air 11/25 1500 63 15 95/54 93 Room Air 11/25 1409 98.2 76 19 102/49 93 Nasal 2.0 Cannula 11/25 1336 72 19 97/63 93 Nasal 2.0 Cannula 11/25 1250 72 16 117/71 95 Nasal 2.0 Cannula 11/25 1138 61 17 88/46 94 11/25 1029 98.8 74 19 88/37 94 Nasal 2.0 Cannula 11/25 0929 78 20 110/66 96 Nasal 2.0 Cannula 11/25 0926 75 20 80/57 96 Nasal 2.0 Cannula 11/25 0921 74 20 87/46 96 Nasal 3.0 Cannula 11/25 0912 84/44 11/25 0900 83/40 11/25 0826 75 20 110/65 95 Nasal 3.0 Cannula I&O 11/26 0000 11/25 1600 11/25 08 Intake Total 2150 720 1519 Output Total 199 931 2105 Balance 2049 520 -436 General Appearance Alert, Oriented X3, Cooperative, No acute distress Lungs scattered rhonchi otherwise clear to auscultation Cardiovascular Regular rate and rhythm, Normal S1 and S2 Abdomen Normal bowel sounds, Soft, No tenderness, No guarding Extremities No cyanosis, No clubbing Neurological Cranial nerves intact, No lateralizing signs Psych/Mental Status Mental status normal, Mood normal LAB Results Laboratory Tests 11/26 0500 Chemistry Plasma Sodium (136 - 145 mmol/L) 138 Plasma Potassium (3.5 - 5.1 mmol/L) 3.2 Plasma Chloride (98 - 107 mmol/L) 101 CO2 (Enzymatic) (21 - 32 mmol/L) 31 BUN (7 - 18 mg/dL) 17 Creatinine (0.6 - 1.3 mg/dL) 1.0 Est GFR ( Amer) (mL/min) >60 Est GFR (Non-Af Amer) (mL/min) >60 Glucose (70 - 110 mg/dL) 110 Plasma Calcium (8.5 - 10.1 mg/dL) 8.0 Hematology WBC (4.5 - 11.5 K/uL) 8.8 RBC (4.50 - 5.90 M/uL) 3.21 Hgb (13.5 - 17.5 gm/dL) 10.1 Hct (41.0 - 53.0 %) 30.6 MCV (80 - 100 fL) 95 MCH (26 - 34 pg) 31 RDW (11.6 - 14.8 %) 16.1 Neut % (Auto) (50 - 75 %) 84 Lymph % (Auto) (25 - 40 %) 15 [place] % (Auto) (3 - 14 %) 0 Eos % (Auto) (0 - 4 %) 0 Baso % (Auto) (0 - 2 %) 1 Band Neutrophils % (0 - 8 %) 0 Metamyelocytes % (0 - 1 %) 0 Myelocytes (0 - 1 %) 0 Other Cell Type 0 Plt Count, EDTA (150 - 400 K/uL) 222 Hypochromic-Microcytic 1+ Anisocytosis (manual) 1+ PUBS MCHC (31 - 37 g/dL) 33 Assessment and Plan Problem List 1. Abdominal pain Plan -Resolved -Etiology unclear -Outpatient follow up with PCP. Consider upper endoscopy for persistent discomfort 2. Hypotension Plan -Resolved 3. Hyponatremia Plan -Resolved 4. Hypokalemia Plan -Mild -By mouth supplementation -Discharged on by mouth supplement 5. Hypomagnesemia Status Acute Onset Date Unknown Plan -Mild -Discharged on by mouth supplement Current status: Fair, improved Anticipated discharge date: Today Anticipated discharge placement: Home Patient care time: Time spent in chart review, patient interview, physical exam, CPOE, and care documentation: Greater than 30 minutes Visit to patient today: 1 Complexity of care: Moderate For other recommendations regarding discharge diet, activity, followup, and discharge medications please see the patient's discharge instructions. Greater than 30 min. was spent in the patient's discharge preparation including discharge interview and physical examination, progress note, discharge instructions, and discharge summary E&M Codes Discharge: Inpt >30 min spent/[id number]
[2016-11-26] MEDS ORDERED: PROTONIX40 MG PO (12:36)
--- NOTE | 2016-11-26 12:38 | Provider's Discharge Care Plan ---
Problem, Goal, Plan Problem List 1. Hypotension Goals: Improve disease control, Prevent disease progress Instructions: Follow up as directed, Take meds as directed 2. Hypomagnesemia Goals: Improve disease control, Prevent disease progress Instructions: Follow up as directed, Take meds as directed, Have your magnesium checked with your physician in 1-2 weeks 3. Hypokalemia Goals: Improve disease control, Prevent disease progress Instructions: Follow up as directed, Take meds as directed, Have your potassium checked in 1-2 weeks with your family physician
[2016-11-26] MEDS ORDERED: MAG6464 MG PO (12:39)
[2016-11-26] MEDS ORDERED: KLOR-CON M2020 MEQ PO (12:39)
--- NOTE | 2016-11-26 12:43 | Discharge Summary ---
Discharge Summary Report Admit Date 11/24/16 Discharge Date 11/26/16 Admission Diagnosis 1. Hypotension 2. Abdominal pain 3. COPD Discharge Diagnosis 1. Hypotension 2. Abdominal pain 3. COPD 4. Hypokalemia 5. Hypomagnesemia 6. Hyponatremia Brief History The patient is a 71-year-old white male with a significant past medical history of COPD, obesity, hypertension, diabetes mellitus, prostate cancer, osteoarthritis, carotid artery disease, who presented to [facility] emergency department on the day of admission secondary to complaints of abdominal pain. [facility] ER evaluation was consistent with diffuse abdominal pain of unclear etiology , hypertension, exacerbation of COPD. Secondary to the above, the patient was admitted by Ridge Nunes M.D. for further evaluation and treatment. For other history present illness, past medical history, family history, social history, review of systems, and admission physical examination please see the patient's history and physical examination and ER visit note in the patient's medical record. Hospital Course The following problems and their management were noted during the patient's hospitalization: 1. Hypotension The patient presented with history of hypertension. He has had numerous previous hospitalizations with hypotension noted. His antihypertensives were held during his hospital stay. His blood pressure normalized off all antihypertensive medications with no further hypotension or orthostatic hypotension noted. He was discharged home to follow-up with his PCP within the next week for recheck of blood pressure. He was discharged on a low-salt diet. 2. Abdominal pain The patient presented with history of abdominal pain. This resolved soon after admission. He had no further abdominal pain at the time of discharge. He was eating well without problems. The patient did have mild dyspepsia and was placed on Protonix orally. He will follow-up with his PCP this week for reevaluation. CT scan of the abdomen was unremarkable other than diverticulosis. 3. COPD The patient has a long-standing history of COPD. He required no supplemental oxygen at the time of discharge. His symptoms were well maintained on commendation therapy of Combivent Respimat/albuterol at the time of discharge. Outpatient follow-up with PCP. 4. Hypokalemia The patient had findings of hypokalemia during his hospital stay. He was discharged on potassium supplementation in the form of KCl 20 mEq by mouth daily. Outpatient follow-up with PCP with recheck of potassium next week. 5. Hypomagnesemia The patient had findings of hypomagnesemia. He was treated with IV/oral supplementation. He was discharged on mag 64 1 tablet by mouth twice a day. He will follow-up for repeat magnesium check in one week. 6. Hyponatremia The patient presented with findings of hyponatremia. This resolved early in the patient's hospital course. His sodium was normal on a regular diet at the time of discharge. Lab/Imaging Laboratory Tests 11/26 0500 Chemistry Plasma Sodium (136 - 145 mmol/L) 138 Plasma Potassium (3.5 - 5.1 mmol/L) 3.2 Plasma Chloride (98 - 107 mmol/L) 101 CO2 (Enzymatic) (21 - 32 mmol/L) 31 BUN (7 - 18 mg/dL) 17 Creatinine (0.6 - 1.3 mg/dL) 1.0 Est GFR ( Amer) (mL/min) >60 Est GFR (Non-Af Amer) (mL/min) >60 Glucose (70 - 110 mg/dL) 110 Plasma Calcium (8.5 - 10.1 mg/dL) 8.0 Hematology WBC (4.5 - 11.5 K/uL) 8.8 RBC (4.50 - 5.90 M/uL) 3.21 Hgb (13.5 - 17.5 gm/dL) 10.1 Hct (41.0 - 53.0 %) 30.6 MCV (80 - 100 fL) 95 MCH (26 - 34 pg) 31 RDW (11.6 - 14.8 %) 16.1 Neut % (Auto) (50 - 75 %) 84 Lymph % (Auto) (25 - 40 %) 15 [place] % (Auto) (3 - 14 %) 0 Eos % (Auto) (0 - 4 %) 0 Baso % (Auto) (0 - 2 %) 1 Band Neutrophils % (0 - 8 %) 0 Metamyelocytes % (0 - 1 %) 0 Myelocytes (0 - 1 %) 0 Other Cell Type 0 Plt Count, EDTA (150 - 400 K/uL) 222 Hypochromic-Microcytic 1+ Anisocytosis (manual) 1+ PUBS MCHC (31 - 37 g/dL) 33 Discharge Instructions/Meds For other recommendations regarding discharge diet, activity, followup, and discharge medications please see the patient's discharge instructions. Discharge condition: Fair, improved Greater than 30 min. was spent in the patient's discharge preparation including discharge interview and physical examination, progress note, discharge instructions, and discharge summary The patient was interviewed and examined on the day of discharge. E&M Codes Discharge: Inpt >30 min spent/[id number]
--- NOTE | 2016-11-26 15:34 | NUR ---
PT WAS OOB THIS AM AFTER BREAKFAST AMBULATED THE HALLS USING A WALKER ON RA AND TOLERATED WELL. NO CHANGES IN ORTHOSTATIC BP FROM SITTING TO STANDING. PT WAS GIVEN HIS DISCHARGE INSTRUCTIONS WHICH INCLUDED HIS HYPERTENSIVE MEDS TO STOP INCLUDING HIS FLOMAX WHICH MAY BE CONTRIBUTING TO HIS ORTHOSTATIVE HYPOTENSION. PT WAS ESCORTED IN A W/C TO HIS FRIENDS PRIVATE VEHICLE.
== END 2016-11-26 14:15 | disposition home or self-care (01) | DRG 312 ==
LOC: ED SRH 04:24 → TRANS SRH 07:12 → CC SRH 07:38 → TRANS SRH 07:38 → CC SRH 09:17
PROVIDERS: ADMIT Student in an Organized Health Care Education/Training Program
DX: I95.2 Hypotension due to drugs (principal); E87.1 Hypo-osmolality and hyponatremia; J44.1 Chronic obstructive pulmonary disease with (acute) exacerbation; T44.7X5A Adverse effect of beta-adrenoreceptor antagonists, initial encounter; R10.13 Epigastric pain; E87.6 Hypokalemia; E83.42 Hypomagnesemia
CPT/HCPCS: 81240; 83475; 85241; 90004; 90047; 90065; 90074; 90100; 90616; 91295; 91320; 91556; 92031; 92132; 92235; 92530; 92720; 93004; 93010; 93140; 94001; 94060; 95059; 95061